=== PATIENT | male | born 1965 | race Caucasian/White ===

== ENCOUNTER 2017-04-10 21:18 | Observation (INO) | payer BC, OTHER ==
[~2017-04-10] VITALS: Ht 172.7 cm; Wt 91.0 kg
[~2017-04-10 21:18] MED LIST: LORT5TAB PO; LOVA1TAB47 PO; META800 PO; PROZ20CA11 PO; TAB-TAB PO
[2017-04-10 21:26] VITALS: BP 130/80; PULSE 64; RESP 20; O2SAT 99
[2017-04-10] MEDS ORDERED: LOVA20TA PO (21:32)
[2017-04-10] MEDS ORDERED: IBUP-232 PO (21:36)
[2017-04-10] MEDS ORDERED: FLUO-1 PO (21:36)
[2017-04-10] MEDS ORDERED: MULT1TAB46 PO (21:36)
--- NOTE | 2017-04-10 21:39 | PD ---
HPI Chief Complaint: Syncope/Near-Syncope Time Seen by Provider: 21:34 Travel History International Travel<30 days: No Contact w/Intl Traveler<30days: No Traveled to known affect area: No History of Present Illness HPI 51-year-old male presents to the emergency department by EMS transport from home where he had a syncopal episode witnessed 2. Patient states that he is felt well all day long no concerns no complaints was sitting at a table outside talking with friends and family and had a witnessed episode of syncope approximately 45 seconds induration with possible seizure activity and resolved spontaneously. Patient short time thereafter reportedly had an additional episode of syncope was placed on the ground but without any seizure-like activity and no report of bowel incontinence reports urinary incontinence; no tongue trauma. Patient again came to spontaneously. Patient did not appear confusional or postictal other than he was not aware of what had occurred. states that she felt for approximately 5-10 seconds that he was not breathing. Patient has history of dyslipidemia on Lipitor, family history of father with amyloidosis with cardiac involvement, and older brother with atrial fibrillation. No family history of premature onset CAD or sudden . Patient denies any recent long distance travel protracted bedrest or surgical procedure. No prior history of's seizure or syncopal activity. There was no associated trauma. Patient reports he feels well at this time. Patient had a normal active day without overexertion denies any chest pain palpitations shortness of breath sweats nausea vomiting referred neck jaw back shoulder arm or abdominal pain also no headache dizziness visual disturbance confusion speech disturbance upper or lower extremity numbness tingling or weakness and no ataxic gait. Patient had been well hydrated throughout the day and was not exerting himself at time of event. Patient has had previous EKG is not patient does not recall any abnormalities and has had a previous stress test that was reportedly normal. No alcohol use today. [facility] Past Medical History Narrative Medical Dyslipidemia no tobacco use Alcohol use nursing notes reviewed Anxiety: Yes Diminished Hearing: No Pneumonia: Yes (2008) Triglycerides - High: Yes Social History Alcohol Use: Yes (SOCIALLY) Tobacco Use: No Substance Use: No Allergies-Medications (Allergen,Severity, Reaction): Coded Allergies: No Known Allergies (Verified , 08/28/11) Reported Meds & Prescriptions Reported Meds & Active Scripts Active Reported Multi Vitamin Daily (Multiple Vitamin) 1 Tab Tab PO DAILY Ibuprofen 600 Mg Tab 600 Mg PO DAILY PRN Prozac (Fluoxetine HCl) 10 Mg Cap 10 Mg PO DAILY Lovastatin 20 Mg Tab 20 Mg PO DAILY Review of Systems Except as stated in HPI: all other systems reviewed are Neg General / Constitutional: No: Fever, Chills Eyes: No: Visual changes HENT: No: Headaches, Vertigo, Lightheadedness, Neck Pain Cardiovascular: Positive: Syncope, No: Chest Pain or Discomfort, Palpitations, Tachycardia, Diaphoresis, Edema Respiratory: No: Cough, Shortness of Breath Gastrointestinal: No: Nausea, Vomiting, Abdominal Pain Genitourinary: No: Flank Pain Musculoskeletal: No: Myalgias, Arthralgias Skin: No Rash Neurologic: Positive: Syncope, No: Weakness, Dizziness, Focal Abnormalities, Coordination Problem, Headache, Change in Mentation, Slurred Speech, Paresthesia , Incontinence, Seizures Psychiatric: No: Anxiety Endocrine: No: Heat Intolerance, Cold Intolerance Hematologic/Lymphatic: No: Easy Bruising Physical Exam Narrative GENERAL: Well-developed well-nourished male in no acute distress no respiratory distress GCS 15 SKIN: Warm and dry. HEAD: Atraumatic. Normocephalic. EYES: Pupils equal and round. No scleral icterus. No injection or drainage. ENT: No nasal bleeding or discharge. Mucous membranes pink and moist. NECK: Trachea midline. No JVD. CARDIOVASCULAR: Regular rate and rhythm. RESPIRATORY: No accessory muscle use. Clear to auscultation. Breath sounds equal bilaterally. GASTROINTESTINAL: Abdomen soft, non-tender, nondistended. Hepatic and splenic margins not palpable. MUSCULOSKELETAL: Extremities without clubbing, cyanosis, or edema. No obvious deformities. NEUROLOGICAL: Awake and alert. No obvious cranial nerve deficits. Motor grossly within normal limits. Five out of 5 muscle strength in the arms and legs. No limb ataxia. No pronator drift. Sensory exam grossly intact. No clonus. Normal speech. PSYCHIATRIC: Appropriate mood and affect; insight and judgment normal. Data Data Last Documented VS Vital Signs Date Time Temp Pulse Resp B/P (MAP) Pulse Ox O2 Delivery O2 Flow Rate FiO2 04/10/17 23:26 61 20 133/79 (97) 97 Room Air Orders Orders Electrocardiogram (04/10/17 22:38) Complete Blood Count With Diff (04/10/17 22:38) Comprehensive Metabolic Panel (04/10/17 22:38) Magnesium (Mg) (04/10/17 22:38) Ckmb (Isoenzyme) Profile (04/10/17 22:38) Troponin I (04/10/17 22:38) Act Partial Throm Time (Ptt) (04/10/17 22:38) Prothrombin Time / Inr (Pt) (04/10/17 22:38) Urinalysis - C+S If Indicated (04/10/17 22:38) Chest, Single Ap (04/10/17 22:38) Ct Brain W/O Iv Contrast(Rout) (04/10/17 22:38) Ecg Monitoring (04/10/17 22:38) Iv Access Insert/Monitor (04/10/17 22:38) Oximetry (04/10/17 22:38) Ondansetron Inj (Zofran Inj) (04/10/17 22:45) Sodium Chloride 0.9% Flush (Ns Flush) (04/10/17 22:45) D-Dimer (04/11/17 00:23) Admit Order (Ed Use Only) (04/11/17 ) ^ Saline Lock (04/11/17 01:49) Resp Oxygen Pj C Titrat 1-4 L (04/11/17 ) Notify Dr: Other (04/11/17 01:49) Sodium Chloride 0.9% Flush (Ns Flush) (04/11/17 09:00) Sodium Chloride 0.9% Flush (Ns Flush) (04/11/17 02:00) Labs Laboratory Tests Test 04/10/17 22:57 04/10/17 23:19 White Blood Count 6.3 TH/MM3 Red Blood Count 4.34 MIL/MM3 Hemoglobin 13.4 GM/DL Hematocrit 39.5 % Mean Corpuscular Volume 91.0 FL Mean Corpuscular Hemoglobin 30.9 PG Mean Corpuscular Hemoglobin Concent 33.9 % Red Cell Distribution Width 13.0 % Platelet Count 215 TH/MM3 Mean Platelet Volume 9.1 FL Neutrophils (%) (Auto) 47.4 % Lymphocytes (%) (Auto) 39.1 % Monocytes (%) (Auto) 10.3 % Eosinophils (%) (Auto) 2.8 % Basophils (%) (Auto) 0.4 % Neutrophils # (Auto) 3.0 TH/MM3 Lymphocytes # (Auto) 2.5 TH/MM3 Monocytes # (Auto) 0.7 TH/MM3 Eosinophils # (Auto) 0.2 TH/MM3 Basophils # (Auto) 0.0 TH/MM3 CBC Comment DIFF FINAL Differential Comment Prothrombin Time 10.8 SEC Prothromb Time International Ratio 1.0 RATIO Activated Partial Thromboplast Time 26.8 SEC D-Dimer Quantitative (PE/DVT) 0.22 MG/L FEU Blood Urea Nitrogen 20 MG/DL Creatinine 1.09 MG/DL Random Glucose 88 MG/DL Total Protein 7.3 GM/DL Albumin 3.6 GM/DL Calcium Level 8.1 MG/DL Magnesium Level 1.9 MG/DL Alkaline Phosphatase 58 U/L Aspartate Amino Transf (AST/SGOT) 22 U/L Alanine Aminotransferase (ALT/SGPT) 32 U/L Total Bilirubin 0.3 MG/DL Sodium Level 134 MEQ/L Potassium Level 3.9 MEQ/L Chloride Level 102 MEQ/L Carbon Dioxide Level 22.3 MEQ/L Anion Gap 10 MEQ/L Estimat Glomerular Filtration Rate 72 ML/MIN Total Creatine Kinase 81 U/L Troponin I LESS THAN 0.02 NG/ML Urine Color YELLOW Urine Turbidity CLEAR Urine pH 5.0 Urine Specific [place] 1.014 Urine Protein NEG mg/dL Urine Glucose (UA) NEG mg/dL Urine Ketones NEG mg/dL Urine Occult Blood NEG Urine Nitrite NEG Urine Bilirubin NEG Urine Urobilinogen LESS THAN 2.0 MG/DL Urine Leukocyte Esterase NEG Urine RBC LESS THAN 1 /hpf Urine WBC LESS THAN 1 /hpf Microscopic Urinalysis Comment CULT NOT INDICATED MDM Medical Decision Making Medical Screen Exam Complete: Yes Emergency Medical Condition: Yes Medical Record Reviewed: Yes Interpretation(s) D-dimer is 0.22, not elevated Troponin I less than 0.2, not elevated; CK: 88, not elevated Last Impressions Head CT 04/10/172237 Signed Impressions: Service Date/Time: Monday, April 10, 2017 22:46 - CONCLUSION: No acute intracranial abnormality. Jet Moran MD Chest X-Ray 04/10/172237 Signed Impressions: Service Date/Time: Monday, April 10, 2017 22:58 - CONCLUSION: No evidence of acute cardiopulmonary disease. Jet Moran MD CBC & BMP Diagram 04/10/17 22:57 Total Protein 7.3, Albumin 3.6, Calcium Level 8.1 L, Magnesium Level 1.9, Alkaline Phosphatase 58, Aspartate Amino Transf (AST/SGOT) 22, Alanine Aminotransferase (ALT/SGPT) 32, Total Bilirubin 0.3 EKG sinus rhythm rate 65 with first-degree AV block right bundle branch block and left anterior fascicular block no identified acute ST elevation Vital Signs Date Time Temp Pulse Resp B/P (MAP) Pulse Ox O2 Delivery O2 Flow Rate FiO2 04/10/17 23:26 61 20 133/79 (97) 97 Room Air 04/10/17 23:25 97 Room Air 04/10/17 22:04 58 133/83 (100) 100 Room Air 04/10/17 21:26 64 20 130/80 (97) 99 Differential Diagnosis Syncope, arrhythmia, ACS, myocardial infarction, seizure, electronic disturbance Narrative Course IV access obtained patient placed on cardiovascular specialist EKG sinus rhythm with first-degree AV block and right bundle branch block with left anterior fascicular block at bedside patient reportedly feels well voicing no concerns or complaints normal neurologic exam. CT brain noncontrast reveals no acute abnormality Cardiac enzymes are found to be in normal range D-dimer is not elevated 0.22 Case discussed with on-call medicine physician for observation admission for syncopal episode with transient urinary incontinence and movement however unlikely primary seizure event suspected vasovagal etiology will admit for ongoing cardiac monitoring and further evaluation Physician Communication Physician Communication discussed with DR Natarajan--obs admit Diagnosis Primary Impression: Syncope Qualified Codes: R55 - Syncope and collapse Admitting Information Admitting Physician Requests: Observation Kay De La Fuente MD Apr 10, 2017 21:39
[2017-04-10 22:04] VITALS: BP 133/83; PULSE 58; O2SAT 100
[2017-04-10] MEDS ORDERED: niCARdipine INJ 25 MG in SODIUM CHLOR 0.9% 250 ML INJ 250 ML IV PRN (22:15)
[2017-04-10] MEDS ORDERED: METOCLOPRAMIDE HCL 10 MG/2 ML VIAL IV PUSH ONE (22:15)
[2017-04-10] MEDS ORDERED: SODIUM CHLORIDE 0.9% FLUSH 10 ML FLUSH IVF PRN (22:45)
[2017-04-10] MEDS: ONDANSETRON HCL 4 MG/2 ML VIAL IVP ONE ×2 (22:45→23:23)
--- NOTE | 2017-04-10 22:56 | RADRPT ---
EXAM DATE/TIME: 04/10/2017 22:46 [facility] COMPARISON: No previous studies available for comparison. INDICATIONS : Dizziness. Possible syncopal episode. RADIATION DOSE: 39.83 CTDIvol (mGy) MEDICAL HISTORY : Hypercholesterolemia. SURGICAL HISTORY : None. ENCOUNTER: Initial ACUITY: 1 day PAIN SCALE: 0/10 LOCATION: Bilateral cranial TECHNIQUE: Multiple contiguous axial images were obtained of the head. Using automated exposure control and adj ustment of the mA and/or kV according to patient size, radiation dose was kept as low as reasonably a chievable to obtain optimal diagnostic quality images. DICOM format image data is available electro nically for review and comparison. FINDINGS: CEREBRUM: The ventricles are normal for age. No evidence of midline shift, mass lesion, hemorrhage or acute in farction. No extra-axial fluid collections are seen. POSTERIOR FOSSA: The cerebellum and brainstem are intact. The 4th ventricle is midline. The cerebellopontine angle i s unremarkable. EXTRACRANIAL: There is an 18 mm mucous retention cyst of the right maxillary air cell. SKULL: The calvaria is intact. No evidence of skull fracture. CONCLUSION: No acute intracranial abnormality. Jet Moran MD on April 10, 2017 at 22:54 Board Certified Radiologist. This report was verified electronically.
--- NOTE | 2017-04-10 23:02 | RADRPT ---
EXAM DATE/TIME: 04/10/2017 22:58 [facility] COMPARISON: No previous studies available for comparison. INDICATIONS : Chest discomfort. MEDICAL HISTORY : None. SURGICAL HISTORY : None. ENCOUNTER: Initial ACUITY: 1 day PAIN SCORE: 6/10 LOCATION: Bilateral chest FINDINGS: A single view of the chest demonstrates the lungs to be symmetrically aerated without evidence of mas s, infiltrate or effusion. The cardiomediastinal contours are unremarkable. Osseous structures are intact. CONCLUSION: No evidence of acute cardiopulmonary disease. Jet Moran MD on April 10, 2017 at 23:00 Board Certified Radiologist. This report was verified electronically.
[2017-04-10 23:25] VITALS: O2SAT 97
[2017-04-10 23:26] VITALS: BP 133/79; PULSE 61; RESP 20; O2SAT 97
[2017-04-10 23:28] LABS: BASOPHIL % 0.4 % (0.0-2.0); EOSINOPHIL # 0.2 TH/MM3 (0-0.4); EOSINOPHIL % 2.8 % (0.0-4.0); HEMATOCRIT 39.5 % (39.0-51.0); HEMO FLAGS DIFF FINAL; LYMPH % 39.1 % (9.0-44.0); LYMPHOCYTE # 2.5 TH/MM3 (1.0-4.8); MEAN CORPUSCULAR HEMOGLOBIN 30.9 PG (27.0-34.0); MEAN CORPUSCULAR HGB CONC 33.9 % (32.0-36.0); MONO % 10.3 % (0.0-8.0); NEUT % 47.4 % (16.0-70.0); PLATELET COUNT 215 TH/MM3 (150-450); RED BLOOD COUNT 4.34 MIL/MM3 (4.50-5.90); WHITE BLOOD COUNT 6.3 TH/MM3 (4.0-11.0)
[2017-04-10 23:39] LABS: APTT (PATIENT) 26.8 SEC (24.3-30.1); PROTHROMBIN TIME - PATIENT 10.8 SEC (9.8-11.6)
[2017-04-10 23:54] LABS: ALT (GPT) 32 U/L (12-78)
[2017-04-10 23:56] LABS: BLOOD, URINE NEG (NEG); COMMENT (UR) CULT NOT INDICATED; CULTURE IF INDICATED CULT NOT INDICATED; GLUCOSE,URINE NEG (NEG); KETONE, URINE NEG (NEG); NITRITE,URINE NEG (NEG); URINE COLOR YELLOW (YELLW/STRAW)
[2017-04-11] VITALS (9 sets, daily range): BP systolic 117–131; BP diastolic 66–81; PULSE 60–90; RESP 18–20; TEMP 98.1–98.8; O2SAT 93–99
[2017-04-11 00:19] LABS: ALKALINE PHOSPHATASE 58 U/L (45-117); ANION GAP 10 MEQ/L (5-15); AST (GOT) 22 U/L (15-37); BICARBONATE 22.3 MEQ/L (21.0-32.0); BLOOD UREA NITROGEN 20 MG/DL (7-18); CHLORIDE 102 MEQ/L (98-107); GLOMERULAR FILTRATION RATE 72 ML/MIN (>89); MAGNESIUM 1.9 MG/DL (1.5-2.5); POTASSIUM 3.9 MEQ/L (3.5-5.1); SODIUM (NA) 134 MEQ/L (136-145); TOTAL BILIRUBIN ADULT 0.3 MG/DL (0.2-1.0)
[2017-04-11 00:22] LABS: CREATINE KINASE 81 U/L (39-308)
[2017-04-11] MEDS ORDERED: SODIUM CHLORIDE 0.9% FLUSH 10 ML FLUSH IVF PRN (02:00)
[2017-04-11] MEDS: SODIUM CHLOR 0.9% 1000 ML INJ 1,000 ML IV SCH ×3 (03:32→22:50)
--- NOTE | 2017-04-11 03:42 | HHI.HP ---
HPI Service [facility] Primary Care Physician Cynthia Santiago MD Admission Diagnosis Syncope Diagnoses: Chief Complaint: syncope x 2 Travel History International Travel<30 Days: No Contact w/Intl Traveler <30 Da: No Traveled to Known Affected Are: No History of Present Illness Written by RASHAAD Crawley acting as scribe for [Rosa Isela] on 04/11/17 at 03: 36. 51 y/o male with a history of HLD and depression presented to the ED after having two episodes of syncope at home. Patient states he was just sitting in a chair at dinner on the patio. Patient does not remember the episodes but remembers when he came to and his was trying to wake him up. He states his told him the first episode he was out for 45 seconds and the second episode was shorter. He did have urinary incontinence but no tongue biting. Unclear if he was postictal at any time. He denies any chest pain, sob, dizziness, fever or chills. He states he only had a few beers tonight while cooking BBQ. No history of seizures. Review of Systems Except as stated in HPI: all other systems reviewed are Neg Past Family Social History Past Medical History HLD Depression Past Surgical History Carpel tunnel surgery Vasectomy Reported Medications Reported Meds & Active Scripts Active Reported Multi Vitamin Daily (Multiple Vitamin) 1 Tab Tab PO DAILY Ibuprofen 600 Mg Tab 600 Mg PO DAILY PRN Prozac (Fluoxetine HCl) 10 Mg Cap 10 Mg PO DAILY Lovastatin 20 Mg Tab 20 Mg PO DAILY Allergies: Coded Allergies: No Known Allergies (Verified , 08/28/11) Active Ordered Medications Current Medications Medications (Trade) Dose Ordered Sig/Bharat Route Start Time Stop Time Status Last Admin (NS Flush) 2 ml BID IV FLUSH 04/11/17 09:00 (NS Flush) 2 ml UNSCH PRN IVF 04/11/17 02:00 Sodium Chloride 1,000 ml @ 100 mls/hr Q10H IV 04/11/17 01:51 04/11/17 03:32 (Heparin Inj) 5,000 units Q8HR SQ 04/11/17 06:00 Family History Dad: Luna Brother: Marla Social History Tobacco use: Denies Alcohol use: A few beers every couple of days Illicit drug use: Denies Physical Exam Vital Signs Vital Signs Date Time Temp Pulse Resp B/P (MAP) Pulse Ox O2 Delivery O2 Flow Rate FiO2 04/10/17 23:26 61 20 133/79 (97) 97 Room Air 04/10/17 23:25 97 Room Air 04/10/17 22:04 58 133/83 (100) 100 Room Air 04/10/17 21:26 64 20 130/80 (97) 99 Physical Exam GENERAL: This is a well-nourished, well-developed patient, in no apparent distress. SKIN: No rashes, ecchymoses or lesions. Cool and dry. HEAD: Atraumatic. Normocephalic. EYES: Pupils equal round and reactive. Extraocular motions intact. ENT: Nose without bleeding, purulent drainage or septal hematoma. Airway patent. NECK: Trachea midline. No JVD or lymphadenopathy. CARDIOVASCULAR: Regular rate and rhythm without murmurs, gallops, or rubs. RESPIRATORY: Clear to auscultation. Breath sounds equal bilaterally. No wheezes , rales, or rhonchi. GASTROINTESTINAL: Abdomen soft, non-tender, nondistended. No guarding. MUSCULOSKELETAL: Extremities without clubbing, cyanosis, or edema. No calf tenderness. NEUROLOGICAL: Awake and alert. Cranial nerves II through XII intact. Motor and sensory grossly within normal limits. Five out of 5 muscle strength in all muscle groups. Normal speech. Laboratory Laboratory Tests Test 04/10/17 22:57 04/10/17 23:19 White Blood Count 6.3 Red Blood Count 4.34 Hemoglobin 13.4 Hematocrit 39.5 Mean Corpuscular Volume 91.0 Mean Corpuscular Hemoglobin 30.9 Mean Corpuscular Hemoglobin Concent 33.9 Red Cell Distribution Width 13.0 Platelet Count 215 Mean Platelet Volume 9.1 Neutrophils (%) (Auto) 47.4 Lymphocytes (%) (Auto) 39.1 Monocytes (%) (Auto) 10.3 Eosinophils (%) (Auto) 2.8 Basophils (%) (Auto) 0.4 Neutrophils # (Auto) 3.0 Lymphocytes # (Auto) 2.5 Monocytes # (Auto) 0.7 Eosinophils # (Auto) 0.2 Basophils # (Auto) 0.0 CBC Comment DIFF FINAL Differential Comment Prothrombin Time 10.8 Prothromb Time International Ratio 1.0 Activated Partial Thromboplast Time 26.8 D-Dimer Quantitative (PE/DVT) 0.22 Blood Urea Nitrogen 20 Creatinine 1.09 Random Glucose 88 Total Protein 7.3 Albumin 3.6 Calcium Level 8.1 Magnesium Level 1.9 Alkaline Phosphatase 58 Aspartate Amino Transf (AST/SGOT) 22 Alanine Aminotransferase (ALT/SGPT) 32 Total Bilirubin 0.3 Sodium Level 134 Potassium Level 3.9 Chloride Level 102 Carbon Dioxide Level 22.3 Anion Gap 10 Estimat Glomerular Filtration Rate 72 Total Creatine Kinase 81 Troponin I LESS THAN 0.02 Ethyl Alcohol Level 146 Urine Color YELLOW Urine Turbidity CLEAR Urine pH 5.0 Urine Specific [place] 1.014 Urine Protein NEG Urine Glucose (UA) NEG Urine Ketones NEG Urine Occult Blood NEG Urine Nitrite NEG Urine Bilirubin NEG Urine Urobilinogen LESS THAN 2.0 Urine Leukocyte Esterase NEG Urine RBC LESS THAN 1 Urine WBC LESS THAN 1 Microscopic Urinalysis Comment CULT NOT INDICATED Urine Opiates Screen NEG Urine Barbiturates Screen NEG Urine Amphetamines Screen NEG Urine Benzodiazepines Screen NEG Urine Cocaine Screen NEG Urine Cannabinoids Screen NEG Result Diagram: 04/10/[id number]/[id number] Imaging Last Impressions Head CT 04/10/172237 Signed Impressions: Service Date/Time: Monday, April 10, 2017 22:46 - CONCLUSION: No acute intracranial abnormality. Jet Moran MD Chest X-Ray 04/10/172237 Signed Impressions: Service Date/Time: Monday, April 10, 2017 22:58 - CONCLUSION: No evidence of acute cardiopulmonary disease. Jet Moran MD Caprini VTE Risk Assessment Caprini VTE Risk Assessment: No/Low Risk (score <= 1) Caprini Risk Assessment Model Point Value = 1 Point Value = 2 Point Value = 3 Point Value = 5 Age 41-60 Minor surgery BMI > 25 kg/m2 Swollen legs Varicose veins or History of unexplained or recurrent spontaneous Oral contraceptives or hormone replacement Sepsis (< 1 month) Serious lung disease, including pneumonia (< 1 month) Abnormal pulmonary function Acute myocardial infarction Congestive heart failure (< 1 month) History of inflammatory bowel disease Medical patient at bed rest Age 61-74 Arthroscopic surgery Major open surgery (> 45 min) Laparoscopic surgery (> 45 min) Malignancy Confined to bed (> 72 hours) Immobilizing plaster cast Central venous access Age >= 75 History of VTE Family history of VTE Factor V Leiden Prothrombin [id number] Lupus anticoagulant Anticardiolipin antibodies Elevated serum homocysteine Heparin-induced thrombocytopenia Other congenital or acquired thrombophilia Stroke (< 1 month) Elective arthroplasty Hip, pelvis, or leg fracture Acute spinal cord injury (< 1 month) Prophylaxis Regimen Total Risk Factor Score Risk Level Prophylaxis Regimen 0-1 Low Early ambulation 2 Moderate Order ONE of the following: *Sequential Compression Device (SCD) *Heparin 5000 units SQ BID 3-4 Higher Order ONE of the following medications: *Heparin 5000 units SQ TID *Enoxaparin/Lovenox 40 mg SQ daily (WT < 150 kg, CrCl > 30 mL/min) *Enoxaparin/Lovenox 30 mg SQ daily (WT < 150 kg, CrCl > 10-29 mL/min) *Enoxaparin/Lovenox 30 mg SQ BID (WT < 150 kg, CrCl > 30 mL/min) AND/OR *Sequential Compression Device (SCD) 5 or more Highest Order ONE of the following medications: *Heparin 5000 units SQ TID (Preferred with Epidurals) *Enoxaparin/Lovenox 40 mg SQ daily (WT < 150 kg, CrCl > 30 mL/min) *Enoxaparin/Lovenox 30 mg SQ daily (WT < 150 kg, CrCl > 10-29 mL/min) *Enoxaparin/Lovenox 30 mg SQ BID (WT < 150 kg, CrCl > 30 mL/min) AND *Sequential Compression Device (SCD) Assessment and Plan Problem List: (1) Syncope ICD Code: R55 - Syncope and collapse Status: Acute (2) HLD (hyperlipidemia) ICD Code: E78.5 - Hyperlipidemia, unspecified Status: Chronic Assessment and Plan 51 y/o male with a history of HLD and depression presented to the ED after having two episodes of syncope at home. Syncope, neurogenic vs cardiogenic Head CT reviewed and shows no acute abnormalities -EEG, 2 D echo and US carotids ordered -Monitor telemetry -Neuro checks - Accu checks, A1C ordered r/o DM HLD, chronic: resume home medications lovastatin Depression: Resume home medications Prozac DVT prophylaxis: Heparin Discussed Condition With Patient This note was transcribed by stephanie Marquez Barble]. I, Dr. Aleja Natarajan personally performed the history, physical exam, and medical decision making; and confirmed the accuracy of the information in the transcribed note. Authenticated by Dr. Aleja Natarajan on 04/11/17 at 04:25. Problem Qualifiers (1) Syncope: Qualified Codes: R55 - Syncope and collapse Isis Aiken Apr 11, 2017 03:42 Aleja Natarajan MD Apr 11, 2017 06:26
[2017-04-11] MEDS: HEPARIN SODIUM - SQ 10,000 UNITS/ML VIAL SQ SCH ×3 (07:27→21:29)
[2017-04-11] MEDS: PRAVASTATIN SOD 20 MG TAB PO SCH (08:56)
[2017-04-11] MEDS: SODIUM CHLORIDE 0.9% FLUSH 10 ML FLUSH IV FLUSH SCH ×2 (08:56→21:00)
[2017-04-11] MEDS: FLUoxetine HCL 10 MG CAP PO SCH (08:56)
--- NOTE | 2017-04-11 09:51 | HHI.PR ---
Subjective Remarks Follow up for syncope. The patient reports feeling well today. Denies any lightheadedness, dizziness, chest pain, shortness of breath, or abdominal complaints. He has been ambulating to the restroom without difficulty. This has never happened to him before. He does admit to drinking a few beers yesterday, then almost completed a large meal when the syncopal event occurred. The patient denies any recent chest pains/angina/dyspnea. He stays pretty active and has no difficulty mowing his entire lawn with a push lawnmower. Objective Vitals Vital Signs Date Time Temp Pulse Resp B/P (MAP) Pulse Ox O2 Delivery O2 Flow Rate FiO2 04/11/17 08:46 90 04/11/17 08:06 93 21 04/11/17 07:55 98.8 61 18 126/76 (93) 99 04/10/17 23:26 61 20 133/79 (97) 97 Room Air 04/10/17 23:25 97 Room Air 04/10/17 22:04 58 133/83 (100) 100 Room Air 04/10/17 21:26 64 20 130/80 (97) 99 Result Diagram: 04/10/17225604/10/172256 Imaging Last Impressions Head CT 04/10/172237 Signed Impressions: Service Date/Time: Monday, April 10, 2017 22:46 - CONCLUSION: No acute intracranial abnormality. Jet Moran MD Chest X-Ray 04/10/172237 Signed Impressions: Service Date/Time: Monday, April 10, 2017 22:58 - CONCLUSION: No evidence of acute cardiopulmonary disease. Jet Moran MD Objective Remarks GENERAL: Well-nourished, well-developed pleasant middle aged male patient in [facility]. SKIN: Warm and dry. No rash. HEENT: Normocephalic. Atraumatic.Pupils equal and round. Mucous membranes pink and moist. NECK: Supple. Trachea midline. CARDIOVASCULAR: Regular rate and rhythm. S1, S2 noted. No murmur appreciated. RESPIRATORY: No accessory muscle use. Clear to auscultation. Breath sounds equal bilaterally. GASTROINTESTINAL: Abdomen soft, non-tender, nondistended. Normoactive bowel sounds x4. MUSCULOSKELETAL: No obvious deformities. Extremities without clubbing, cyanosis , or edema. NEUROLOGICAL: Awake and alert. No obvious cranial nerve deficits. Motor grossly within normal limits. Normal speech. PSYCHIATRIC: Appropriate mood and affect; insight and judgment normal. Medications and IVs Current Medications Medications (Trade) Dose Ordered Sig/Bharat Route Start Time Stop Time Status Last Admin (NS Flush) 2 ml BID IV FLUSH 04/11/17 09:00 (NS Flush) 2 ml UNSCH PRN IVF 04/11/17 02:00 Sodium Chloride 1,000 ml @ 100 mls/hr Q10H IV 04/11/17 01:51 04/11/17 03:32 (Heparin Inj) 5,000 units Q8HR SQ 04/11/17 06:00 04/11/17 07:27 (PROzac) 10 mg DAILY PO 04/11/17 09:00 04/11/17 08:56 (Pravachol) 20 mg DAILY PO 04/11/17 09:00 04/11/17 08:56 (Pneumovax-23 Inj) 25 mcg ONCE ONCE IM 04/12/17 10:00 04/12/17 10:01 (Flu (Quadrivalent) Vaccine Inj) 0.5 ml ONCE ONCE IM 04/12/17 10:00 04/12/17 10:01 A/P Problem List: (1) Syncope ICD Code: R55 - Syncope and collapse Status: Acute (2) HLD (hyperlipidemia) ICD Code: E78.5 - Hyperlipidemia, unspecified Status: Chronic Assessment and Plan 51 y/o male with a history of HLD and depression presented to the ED after having two episodes of syncope at home. Syncope: unclear etiology, suspect neurocardiogenic; vasovagal in combination with alcohol use. Head CT reviewed and shows no acute abnormalities. -Check EEG as there was reported incontinence -Check 2 D echocardiogram -U/S carotids ordered -Monitor on telemetry, no acute events -Monitor Neuro checks -Accu checks, HgbA1C ordered r/o DM Abnormal EKG: EKG reviewed, shows sinus rhythm with 1st degree AV block; RBBB; LAFB with ST-T changes when compared to previous EKG in 2012 -Rule out ACS with serial cardiac enzymes and EKGs -Start on aspirin 81mg daily -Check nuclear stress test in am HLD: chronic, resume home medication lovastatin Depression: Resume home medication Prozac DVT prophylaxis: Heparin Discharge Planning Possible discharge tomorrow if nuclear stress test and echocardiogram unremarkable. Problem Qualifiers (1) Syncope: Qualified Codes: R55 - Syncope and collapse Kat Lambert PA-C Apr 11, 2017 09:51
[2017-04-11 11:05] LABS: HEMOGLOBIN A1b 0.7 %; HEMOGLOBIN Ao 86.4 %; HEMOGLOBIN F 0.9 %; HEMOGLOBIN LA1C 1.9 %; HEMOGLOBIN P3 3.5 %
[2017-04-11] MEDS: ASPIRIN EC 81 MG TABEC PO SCH (11:23)
[2017-04-11 12:14] LABS: ANION GAP 8 MEQ/L (5-15); BICARBONATE 24.8 MEQ/L (21.0-32.0); BLOOD UREA NITROGEN 17 MG/DL (7-18); CHLORIDE 107 MEQ/L (98-107); GLOMERULAR FILTRATION RATE 72 ML/MIN (>89); SODIUM (NA) 140 MEQ/L (136-145)
[2017-04-11 12:20] LABS: CREATINE KINASE 59 U/L (39-308)
--- NOTE | 2017-04-11 15:32 | RADRPT ---
EXAM DATE/TIME: 04/11/2017 12:38 [facility] COMPARISON: No previous studies available for comparison. INDICATIONS : Syncope. MEDICAL HISTORY : Hypercholesterolemia. Hyperlipidemia. Pneumonia. Anxiety. SURGICAL HISTORY : Right hand surgery. Vasectomy. ENCOUNTER: Initial ACUITY: 1 day PAIN SCORE: 0/10 LOCATION: Bilateral neck PEAK SYSTOLIC VELOCITIES (cm/sec): ICA/CCA RATIO: Right: 0.8 Left: 0.9 ICA: Right: 80.6 Left: 70.9 CCA: Right: 97.4 Left: 96.4 ECA: Right: 112.1 Left: 98.4 VERTEBRAL: Right: 49.0 antegrade Left: 66.1 antegrade Elevated flow velocities and ICA/CCA ratios have been found to correlate with increased degrees of vessel stenosis, calculated as percentage of diameter relative to a normal segment of distal ICA/CCA FINDINGS: RIGHT CAROTID: No significant stenosis is visualized. The waveforms are within normal limits. LEFT CAROTID: No significant stenosis is visualized. The waveforms are within normal limits. VERTEBRAL ARTERIES: Antegrade flow is seen in both vertebral arteries. MISCELLANEOUS: None. CONCLUSION: Negative for hemodynamically significant stenosis.. Westley Zapata MD FACR on April 11, 2017 at 15:29 Board Certified Radiologist. This report was verified electronically.
--- NOTE | 2017-04-11 20:06 | EKG ---
Date Performed: 04/10/2017 Time Performed: 21:30:24 PTAGE: 51 years EKG: Sinus rhythm WITH FIRST DEGREE AV BLOCK RIGHT BUNDLE BRANCH BLOCK LEFT ANTERIOR FASCICULAR BLOCK LEFT VENTRICULAR HYPERTROPHY AND ST-T CHANGE ABNORMAL ECG PREVIOUS TRACING : 08/28/2011 20.35 DOCTOR: Mxaine Mao Interpretating Date/Time 04/11/2017 20:04:29
[2017-04-12] VITALS (8 sets, daily range): BP systolic 109–139; BP diastolic 66–80; PULSE 53–76; RESP 16–18; TEMP 97.2–98.6; O2SAT 96–99
[2017-04-12] MEDS: HEPARIN SODIUM - SQ 10,000 UNITS/ML VIAL SQ SCH ×2 (06:36→13:20)
[2017-04-12 06:42] LABS: AUTOMATED NEUTROPHIL # 2.1 TH/MM3 (1.8-7.7); BASOPHIL % 0.5 % (0.0-2.0); EOSINOPHIL # 0.2 TH/MM3 (0-0.4); EOSINOPHIL % 3.9 % (0.0-4.0); HEMATOCRIT 38.9 % (39.0-51.0); HEMO FLAGS DIFF FINAL; LYMPH % 37.8 % (9.0-44.0); LYMPHOCYTE # 1.7 TH/MM3 (1.0-4.8); MEAN CELL VOLUME 91.1 FL (80.0-100.0); MEAN CORPUSCULAR HEMOGLOBIN 31.6 PG (27.0-34.0); MEAN CORPUSCULAR HGB CONC 34.7 % (32.0-36.0); NEUT % 47.8 % (16.0-70.0); PLATELET COUNT 174 TH/MM3 (150-450); RED BLOOD COUNT 4.27 MIL/MM3 (4.50-5.90); WHITE BLOOD COUNT 4.5 TH/MM3 (4.0-11.0)
[2017-04-12 07:14] LABS: BICARBONATE 26.6 MEQ/L (21.0-32.0); POTASSIUM 3.8 MEQ/L (3.5-5.1)
[2017-04-12] MEDS: ASPIRIN EC 81 MG TABEC PO SCH (08:12)
[2017-04-12] MEDS: FLUoxetine HCL 10 MG CAP PO SCH (08:13)
[2017-04-12] MEDS: SODIUM CHLORIDE 0.9% FLUSH 10 ML FLUSH IV FLUSH SCH (08:14)
[2017-04-12] MEDS: PRAVASTATIN SOD 20 MG TAB PO SCH (08:14)
[2017-04-12] MEDS ORDERED: REGADENOSON INJ 0.4 MG/5 ML SYR ONE (09:16)
[2017-04-12] MEDS ORDERED: INFLUENZA VIRUS VACCINE (QUADRIVALENT) 0.5 ML SYR IM ONE (10:00)
[2017-04-12] MEDS ORDERED: PNEUMOCOCCAL POLYVALENT INJ 25 MCG/0.5 ML SYR IM ONE (10:00)
--- NOTE | 2017-04-12 10:18 | RADRPT ---
EXAM DATE/TIME: 04/12/2017 08:32 [facility] COMPARISON: No previous studies available for comparison. INDICATIONS : Two episodes of synope for two days. Abnormal EKG. DOSE: 27.3 mCi Tc99m Myoview at stress. 8.7 mCi Tc99m Myoview at rest. 0.4 mg Lexiscan STRESS SYMPTOMS: None noted. EJECTION FRACTION: 57% MEDICAL HISTORY : Hypercholesterolemia. SURGICAL HISTORY : Carpal tunnel syndrome. ENCOUNTER: Initial ACUITY: 2 days PAIN SCALE: 1/10 LOCATION: chest TECHNIQUE: The patient underwent pharmacologic stress with infusion of prescribed dose. Continuous ECG tracing was monitored during stress. Gated SPECT imaging was performed after stress and conventional SPECT i maging was performed at rest. The examination was performed on a SPECT/CT scanner, both attenuation and non-corrected datasets were reviewed. FINDINGS: DISTRIBUTION: The maximum perfused segment at stress is in the septal wall. PERFUSION STUDY: There is a small area of mildly diminished relative diffusion involving the anterior wall which does not extend to the cardiac apex. No evidence of redistribution. GATED STUDY: There is intact wall motion and thickening without hypokinetic or dyskinetic segments. CONCLUSION: Small size mild severity anterior wall perfusion abnormality without redistribution. RISK CATEGORY: Low (<1% Annual Mortality Rate) Jet Kirby MD on April 12, 2017 at 10:12 Board Certified Radiologist. This report was verified electronically.
--- NOTE | 2017-04-12 11:47 | HHI.PR ---
Subjective Remarks Follow up for syncope, abnormal EKG. The patient is seen s/p nuclear stress test , results discussed. He continues to deny any further complaints including no chest pain, palpitations, shortness of breath, nausea, diaphoresis, or abdominal pain. He has been ambulating without difficulty. Objective Vitals Vital Signs Date Time Temp Pulse Resp B/P (MAP) Pulse Ox O2 Delivery O2 Flow Rate FiO2 04/12/17 08:20 97.2 57 16 123/77 (92) 97 122/73 (89) 132/80 (97) 04/12/17 07:31 53 04/12/17 04:37 98.4 53 18 128/71 (90) 99 04/12/17 04:36 98.5 76 17 109/66 (80) 96 04/12/17 00:05 98.0 59 18 131/73 (92) 97 04/11/17 23:03 61 04/11/17 21:19 95 21 04/11/17 20:17 98.1 67 18 120/71 (87) 96 122/76 (91) 131/81 (98) 04/11/17 16:13 60 04/11/17 15:32 98.2 61 18 117/70 (86) 98 Result Diagram: 04/12/17 0600 04/12/17 0600 Imaging Last Impressions Myocardial Perfusion Scan Nuc Med 04/12/17 06 Signed Impressions: Service Date/Time: Wednesday, April 12, 2017 08:32 - CONCLUSION: Small size mild severity anterior wall perfusion abnormality without redistribution. RISK CATEGORY: Low (<1%% Annual Mortality Rate) Jet Kirby MD Carotid Artery Ultrasound 04/11/17 0000 Signed Impressions: Service Date/Time: Tuesday, April 11, 2017 12:38 - CONCLUSION: Negative for hemodynamically significant stenosis.. Westley Zapata MD FACR Head CT 04/10/172237 Signed Impressions: Service Date/Time: Monday, April 10, 2017 22:46 - CONCLUSION: No acute intracranial abnormality. Jet Moran MD Chest X-Ray 04/10/172237 Signed Impressions: Service Date/Time: Monday, April 10, 2017 22:58 - CONCLUSION: No evidence of acute cardiopulmonary disease. Jet Moran MD Objective Remarks GENERAL: Well-nourished, well-developed pleasant middle aged male patient in [facility]. SKIN: Warm and dry. No rash. HEENT: Normocephalic. Atraumatic.Pupils equal and round. Mucous membranes pink and moist. NECK: Supple. Trachea midline. CARDIOVASCULAR: Regular rate and rhythm. S1, S2 noted. No murmur appreciated. RESPIRATORY: No accessory muscle use. Clear to auscultation. Breath sounds equal bilaterally. GASTROINTESTINAL: Abdomen soft, non-tender, nondistended. Normoactive bowel sounds x4. MUSCULOSKELETAL: No obvious deformities. Extremities without clubbing, cyanosis , or edema. NEUROLOGICAL: Awake and alert. No obvious cranial nerve deficits. Motor grossly within normal limits. Normal speech. PSYCHIATRIC: Appropriate mood and affect; insight and judgment normal. Medications and IVs Current Medications Medications (Trade) Dose Ordered Sig/Bharat Route Start Time Stop Time Status Last Admin (NS Flush) 2 ml BID IV FLUSH 04/11/17 09:00 (NS Flush) 2 ml UNSCH PRN IVF 04/11/17 02:00 Sodium Chloride 1,000 ml @ 100 mls/hr Q10H IV 04/11/17 01:51 04/11/17 22:50 (Heparin Inj) 5,000 units Q8HR SQ 04/11/17 06:00 04/12/17 06:36 (PROzac) 10 mg DAILY PO 04/11/17 09:00 04/12/17 08:13 (Pravachol) 20 mg DAILY PO 04/11/17 09:00 04/12/17 08:14 (Ecotrin Ec) 81 mg DAILY PO 04/11/17 11:00 04/12/17 08:12 A/P Problem List: (1) Syncope ICD Code: R55 - Syncope and collapse Status: Acute (2) HLD (hyperlipidemia) ICD Code: E78.5 - Hyperlipidemia, unspecified Status: Chronic Assessment and Plan 51 y/o male with a history of HLD and depression presented to the ED after having two episodes of syncope at home. Syncope: unclear etiology, suspect cardiogenic vs vasovagal in combination with alcohol use. Significantly abnormal EKG, see below. Head CT reviewed and shows no acute abnormalities. -Check EEG as there was reported incontinence, results pending -Check 2 D echocardiogram, results pending -U/S carotids unremarkable -Monitor on telemetry, no acute events; Holter in place -Monitor Neuro checks -HgbA1C 5.3 Abnormal EKG with Trifascicular Block: EKG reviewed, shows sinus rhythm with 1st degree AV block; RBBB; LAFB with ST-T changes when compared to previous EKG in 2012 -Ruled out ACS with negative serial cardiac enzymes however EKG abnormal as above -Started on aspirin 81mg daily -Nuclear stress test showed small size mild severity anterior wall perfusion abnormality without redistribution -Consult sandblast operator for further evaluation, discussed with Dr. Light, plan for heart cath today -Patient needs eval by Dr. Mao, consider pacer vs EP study HLD: chronic, resume home medication lovastatin Depression: Resume home medication Prozac DVT prophylaxis: Heparin Discharge Planning Discharge pending further evaluation by Dr. Mao. Problem Qualifiers (1) Syncope: Qualified Codes: R55 - Syncope and collapse Kat Lambert PA-C Apr 12, 2017 11:47
--- NOTE | 2017-04-12 11:50 | ECHRPT ---
Indication: syncope CONCLUSIONS The left ventricular systolic function is normal with an estimated ejection fraction in the range of 60-65%. Mild to moderate concentric left ventricular hypertrophy. Trace mitral valve regurgitation. There is trace tricuspid valve regurgitation. Trivial pulmonary valve regurgitation. BP: 128 / 71 HR: 53 Rhythm: Sinus MEASUREMENTS (Male / Female) Normal Values Technical Quality:Fair 2D ECHO LV Diastolic Diameter PLAX 4.1 cm 4.2 - 5.9 / 3.9 - 5.3 cm LV Systolic Diameter PLAX 2.6 cm IVS Diastolic Thickness 1.4 cm 0.6 - 1.0 / 0.6 - 0.9 cm LVPW Diastolic Thickness 1.4 cm 0.6 - 1.0 / 0.6 - 0.9 cm LV Relative Wall Thickness 0.7 RV Internal Dim ED PLAX 2.8 cm LVOT Diameter 1.9 cm LA Systolic Diameter LX 3.3 cm 3.0 - 4.0 / 2.7 - 3.8 cm LV Ejection Fraction MOD 4C 68.5 % LV Cardiac Index MOD 4C 1907.1 cm/minm LV Ejection Fraction 4C AL 69.5 % LV Cardiac Index 4C AL 2003.7 cm/minm M-MODE Aortic Root Diameter MM 2.8 cm AV Cusp Separation MM 2.1 cm DOPPLER AV Peak Velocity 130.0 cm/s AV Peak Gradient 6.8 mmHg LVOT Peak Velocity 98.2 cm/s LVOT Peak Gradient 3.9 mmHg AV Area Cont Eq pk 2.1 cm MV Area PHT 3.9 cm Mitral E Point Velocity 80.0 cm/s Mitral A Point Velocity 33.6 cm/s Mitral E to A Ratio 2.4 LV E' Lateral Velocity 9.7 cm/s Mitral E to LV E' Lateral Ratio 8.3 LV E' Septal Velocity 5.4 cm/s Mitral E to LV E' Septal Ratio 14.9 TR Peak Velocity 240.0 cm/s TR Peak Gradient 23.0 mmHg PV Peak Velocity 109.0 cm/s PV Peak Gradient 4.8 mmHg FINDINGS LEFT VENTRICLE The left ventricular systolic function is normal with an estimated ejection fraction in the range of 60-65%. No regional wall motion abnormalities are present. Normal left ventricular size. Mild to moderate concentric left ventricular hypertrophy. RIGHT VENTRICLE The right ventriclar size is upper limits of normal. LEFT ATRIUM The left atrial size is normal. RIGHT ATRIUM The right atrial size is normal. ATRIAL SEPTUM Normal atrial septal thickness without atrial level shunting by limited color doppler interrogation. AORTA The aortic root and proximal ascending aorta are normal in size on limited imaging. MITRAL VALVE Structurally normal mitral valve. No mitral valve stenosis. Trace mitral valve regurgitation. AORTIC VALVE Trileaflet aortic valve. No aortic valve stenosis or regurgitation. TRICUSPID VALVE Structurally normal tricuspid valve. There is trace tricuspid valve regurgitation. The estimated pulmonary arterial pressure is 33 mmHg. PULMONARY VALVE The pulmonary valve is not well visualized. Trivial pulmonary valve regurgitation. VESSELS The inferior vena cava is normal in size. PERICARDIUM No pericardial effusion. Clive Light DO (Electronically Signed) Final Date:12 April 2017 11:49
[2017-04-12] MEDS: SODIUM CHLOR 0.9% 1000 ML INJ 1,000 ML IV SCH (12:02)
[2017-04-12 13:16] LABS: HDL CHOLESTEROL 56.5 MG/DL (40.0-60.0)
--- NOTE | 2017-04-12 13:43 | EKG ---
Date Performed: 04/11/2017 Time Performed: 16:31:46 PTAGE: 51 years EKG: Sinus rhythm WITH FIRST DEGREE AV BLOCK RIGHT BUNDLE BRANCH BLOCK LEFT ANTERIOR FASCICULAR BLOCK POSSIBLE ANTERIO R MYOCARDIAL INFARCTION ABNORMAL ECG Compared to prior tracing no significant change PREVIOUS TRACING : 04/10/2017 21.30 DOCTOR: Rome Garcia Interpretating Date/Time 04/12/2017 13:42:49
[2017-04-12] MEDS ORDERED: IOHEXOL 350 MG/ML 50 ML BTL (for Cath Lab) OTHER ONE (14:31)
[2017-04-12] MEDS ORDERED: VERAPAMIL HCL 5 MG/2 ML VIAL ONE (14:39)
[2017-04-12] MEDS ORDERED: MIDAZOLAM HCL 2 MG/2 ML VIAL ONE (14:39)
[2017-04-12] MEDS ORDERED: HEPARIN SODIUM - IV 10,000 UNITS/10 ML VIAL ONE (14:40)
[2017-04-12] MEDS ORDERED: HEPARIN-NS/PF INJ 1,000 ML ONE (14:40)
--- NOTE | 2017-04-12 15:25 | CATHPROC ---
[employer] HIS Report Study Information Study Number Admission Scheduled Start Study Start [id number] Apr 11 2017 1:51AM 04/12/2017 Apr 12 2017 2:32PM [place] Service Cardiac Catheterization Admit Source Facility Department Emergency department [facility] Shrinking Machine Operator Physician and Clinical Staff Initial Clive Jiang Demolitionist Johnathon Man RN Recorder Maylin Cabrales,RT(R) (BS) Scrub Jossy Zamora,RT(R) Procedures Performed Procedure Location (Site) Vessel Name Coronary Angiograms LCA Left Coronary Coronary Angiograms RCA Right Coronary L Heart Cath Wire insertion Radial (right) Radial Art. Equipment Time Assistant Inventory Manager Description Size Mfg Part Number Used/Scraped TRANSDUCER, TRUWAVE [id number] 14:54 SILVERMAN ADAMS * Used W/STOCKCOCK *[id number] *[id number] [id number] *[id number] 14:54 [employer] PACK, CCL CUSTOM * Used *[id number] 14:54 [employer] SUPPORT, ARTERIAL ADULT [id number] *[id number] Used BAND, RADIAL COMPRESSION TR [id number] 15:11 [employer] MEDICAL 24CM Used SHORT 24 *[id number] 14:54 [employer] MEDICAL WIRE, EXCHANGE 260CM 3MMJ 260CM Used *[id number] 14:54 [employer] MANIFOLD, 4 PORT * Used *[id number] 14:54 [employer] OMNIPAQUE, 350 MG, 150ML 150ML [id number] Used [id number] 14:54 [employer] MEDICAL BLANKET,WARM AIR CCL * Used *[id number] SHEATH, FR6 TRANSRADIAL RM*[id number] 14:54 [employer] FR 6 Used SLENDER 10CM *[id number] History: Allergies Allergy Reaction No Known Allergies History: Risk Factors Family History of Hypertension Dyslipidemia Previous KS Previous Heart Failure Premature CAD No Yes No No No Prior Valve Prior PCI Prior CABG Surgery No No No Cerebrovascular Peripheral Artery Chronic Lung On Dialysis Diabetes Disease Disease Disease No No No No No History: Symptoms/Diagnosis Selection Items Syncope History: Stress Tests Stress or Imaging Studies Performed Yes Standard Exercise Stress Test No Stress Echo No Stress Test SPECT Yes Stress Test CMR No Cardiac CTA Coronary Calcium Score No No History: Other Current Smoker No Labs Hgb (g/dl) Hct (%) WBC (l/cumm) Platelets (thousands) 11.60-17.00 35.00-51.00 4.00-11.00 150.00-450.00 13.5 38.9 4.5 174 Glucose (mg/dl) BUN (mg/dl) Creatinine (mg/dl) BUN:Creatinine (1:x) 74.00-106.00 7.00-18.00 0.50-1.30 10.00-20.00 95 17 0.9 18.9 Na (meq/l) K (meq/l) 136.00-145.00 3.50-5.10 141 3.8 INR (PTT:PT) 0.90-1.10 1 CPK-MB (ng/ML) 0.50-3.60 Not Drawn Medication Medication Total Dose (Bolus/Oral) Medication Total Dosage/Unit 1% XYLOCAINE 1 mL FENTANYL 25 mcg RADIAL COCKTAIL 1 units VERSED 0.5 mg Medications (Bolus/Oral) Medication Time Given Dosage/Unit Administered By Reason VERSED 04/12/2017 2:51:24 PM 0.5 mg Johnathon Man 0.5 mg VERSED given in lab by Johnathon Man RN in Right Antecubital via Peripheral IV. 1% XYLOCAINE 04/12/2017 2:53:22 PM 1 mL Clive Light 1 mL 1% XYLOCAINE given in lab by Clive Light in Right Radial via Subcutaneous. FENTANYL 04/12/2017 2:53:34 PM 25 mcg Johnathon Man 25 mcg FENTANYL given in lab by Johnathon Man RN in Left Antecubital via Peripheral IV. Ntg 200mcg Verapamil 2.5mg Heparin RADIAL COCKTAIL 04/12/2017 2:56:14 PM 1 units Clive Light 3000U 5 mL (Bolus) RADIAL COCKTAIL given in lab by Clive Light via Radial. Using [Solution Name]. [place] son: Ntg 200mcg Verapamil 2.5mg Heparin 3600U. Medication (Drip) Medication Time Given Dosage/Unit Concentration/Unit Diluent (ml) Solutio n IV Solutions 04/12/2017 2:32:34 PM 0 mL (IV) 500 NaCl .9 IV Solutions given in lab by Johnathon Man RN in Right Antecubital via Peripheral IV. Pump/Drip Flow = 100 ml/hr using NaCl .9. Initial Case Assessment Cardiovascular HR Rhythm NIBP Chest Pain 59 irreg 139/78 0 Edema Present Skin color Skin None Normal Warm Dry Circulatory - Right Pulses Dorsalis Pedis Femoral Radial 2 2 2 Scale (0,1,2,3,4,d) Scale (0,1,2,3,4,d) Circulatory - Lower Extremities Color Lower Right Color Lower Left Normal Normal Chronological Log Time Study Chronological Log 14:31:51 Patient arrived via Bed. 14:31:52 Patient Name, D.O.B, / Armband Verified By R.N. 14:31:52 Consent signed by the physician and the patient and verified by the Shrinking Machine Operator staff. 14:31:58 Pre-op and post- op instructions given; patient acknowledges understanding of instructions. 14:32:00 Verbal Stimulation=2 Physical Stimulation=2 Airway=2 Respiration=2 TOTAL=8. (0=absent, 1=li mited, 2=present) 14:32:03 Presedation assessment performed by Shrinking Machine Operator RN. 14:32:05 Patient has been NPO for More than 6Hrs. 14:32:09 Skin Breakdown none per pt 14:32:22 Patient Warmer Placed on the Table. 14:32:30 Elizabeth Prominences Protected 14:32:33 A # 20 IV was noted in the Antecubital (right). Grade = 0 IV Solutions given in lab by Johnathon Man, RN in Right Antecubital via Peripheral IV. Pump/Dri p Flow = 100 ml/hr using 14:32:34 NaCl .9. 14:32:35 History and physical on the chart or being dictated. Assessment: Initial Case, HR=59 BPM, Rhythm=irreg, ONUJ=753/78 mmhg, Chest Pain=0, Edema=None, Color=Normal, Skin = Warm, Dry 14:32:39 Right Pulses: Demetrio Ped=2, Femoral=2, Radial=2 Lower Right Extremities: Color=Normal Lower Left Extremities: Color=Normal Vitals capture started with the following parameters, Patient=Adult, Interval=5 min, Initial Pr walqxt=288 mmHg, 14:41:58 Deflation Rate=5 mmHg, Cuff placed on Right Arm 14:42:30 Reference ECG taken 14:42:44 HR=66 bpm, BWSX=351/78 mmhg, SpO2=99.0 %, Resp=24 B/min, Pain=0, Lukas=10, Price=2 14:46:46 Right groin and right radial prepped with 2% chlorhexidine, and with a 3 min. waiting time. 14:47:39 Pressure channel 1 zeroed. 14:47:41 HR=63 bpm, JSQV=252/81 mmhg, SpO2=99.0 %, Resp=17 B/min, Pain=0, Lukas=10, Price=2 14:51:24 0.5 mg VERSED given in lab by Johnathon Man RN in Right Antecubital via Peripheral IV. Time Out. Correct patient, correct procedure,correct physician, power injector not loaded with contrast with surgical 14:52:01 team present. Time Out Concurred by , individual staff in procedure 14:52:21 Case Start 14:52:40 HR=63 bpm, KNCH=559/84 mmhg, SpO2=98.0 %, Resp=8 B/min, Pain=0, Lukas=10, Price=2 14:53:22 1 mL 1% XYLOCAINE given in lab by Clive Light in Right Radial via Subcutaneous. 14:53:34 25 mcg FENTANYL given in lab by Johnathon Man RN in Left Antecubital via Peripheral IV. 14:55:04 Access site was right Radial Artery. A SHEATH, FR6 TRANSRADIAL SLENDER 10CM FR 6 was advanced into the Radial (right) using the Perc utaneous 14:55:14 technique. 5 mL (Bolus) RADIAL COCKTAIL given in lab by Clive Light via Radial. Using [Solution Name ]. Reason: Ntg 14:56:14 200mcg Verapamil 2.5mg Heparin 3600U. A 3DRC INFINITI CATHETER FR 5 was advanced over a wire. OMNIPAQUE, 350 MG, 150ML 150ML was used for 14:56:39 injections. 14:57:43 HR=66 bpm, ZLWO=449/77 mmhg, SpO2=96.0 %, Resp=0 B/min, Pain=0, Lukas=10, Price=2 Recorded Pressure: LV, HR=65, Condition=Condition 1 14:58:49 (Left Ventricle) LV 128/1/21 Recorded Pressure: LV, Ao, HR=66, Condition=Condition 1 14:59:33 (Left Ventricle) LV 120/1/23, (Aorta) Ao 111/68/86 Recorded Pressure: Ao, HR=66, Condition=Condition 1 14:59:57 (Aorta) Ao 109/75/92 15:00:35 The RCA was injected and visualized at various angles. OMNIPAQUE, 350 MG, 150ML 150ML used . After removing the current catheter a JL 3.5 INFINITI CATHETER FR 5 was advanced over a WIRE, E XCHANGE 260CM 15:01:51 3MMJ 260CM. 15:02:38 HR=62 bpm, IFTZ=554/72 mmhg, SpO2=95.0 %, Resp=8 B/min, Pain=0, Lukas=10, Price=2 15:05:02 The LCA was injected and visualized at various angles. OMNIPAQUE, 350 MG, 150ML 150ML used . 15:07:11 A WIRE, EXCHANGE 260CM 3MMJ 260CM was inserted via Radial (right). 15:07:33 Catheter was removed 15:07:35 Wire removed 15:07:41 HR=61 bpm, TBXK=616/74 mmhg, SpO2=95.0 %, Resp=8 B/min, Pain=0, Lukas=10, Price=2 Radial Compression Device Used. 9 mLs of air placed in BAND, RADIAL COMPRESSION TR SHORT 24 24C M. Affected 15:10:45 hand 98 % O2 saturation. 15:11:09 Case End 15:11:21 Catheter(s) removed without difficulty 15:11:28 No case complications noted. 15:11:29 Cine recording checked. 15:11:34 Bedside Report will be given. 15:11:37 Contrast Scanned 15:11:40 A Left Heart Cath was performed. 15:12:28 DOCU called. Spoke to Jass. 15:15:39 Patient moved to [facility] End Study - Contrast Media Used In Study Contrast Total Opened (mL) Total Used (mL) Total Wasted (mL) Omnipaque 50 50 0 End Study - Maximum Contrast Load Max Contrast Load (mL) 505.6 End Study - Radiation Exposure Fluoro Time (minutes) 3.1 End Study - Sheaths Sheaths Pulled By Sheath Hold Time (min) Clive Light End Study - Patient Disposition Complications Transferred To Interventional Outcome No Shrinking Machine Operator Holding No attempt made
--- NOTE | 2017-04-12 15:51 | MB ---
cc: CLIVE LEWIS DO DATE OF CONSULTATION: April 12, 2017 REASON FOR CONSULTATION Syncope, abnormal EKG, abnormal stress test. HISTORY OF PRESENT ILLNESS Troy Casas is a pleasant 51-year-old male who presented to [facility] emergency room on April 10, 2017 after two episodes of syncope. He had normal day on TuesdayApril 10 and decided to have a few beers, somewhere between two and four total. He finished cooking dinner he was sitting in a chair eating dinner with his family. He does not remember the episode or beforehand but per the family. He went out for 45 seconds with no response. During this they were unsure if he was breathing but he sounded as if he was somewhat gurgling. During the episode he did have some urinary incontinence but no tongue biting or shaking motion. It does not sound as if he had any post ictal episode afterwards. 3-4 minutes after the first episode he had a similar type second episode which he lower himself to the ground. He denies any chest pain, shortness of breath, palpitations before, during or after the episodes. He states that he has never had a syncopal or presyncopal episode until April 10. In seeing him he is currently comfortable without chest pain or shortness of breath. PAST MEDICAL HISTORY 1. Hyperlipidemia 2. Depression. PAST SURGICAL HISTORY 1. Carpal tunnel surgery. 2. Vasectomy. ALLERGIES NO KNOWN DRUG ALLERGIES. MEDICATIONS 1. Multivitamin daily 2. Ibuprofen 600 mg daily as needed for pain. 3. Prozac 10 mg daily 4. Lovastatin 20 mg daily. SOCIAL HISTORY Denies tobacco. Drinks a few beers every now and then, mostly a social drinker. Denies drug abuse. Works as a professor at [employer]. FAMILY HISTORY Father has Amyloidosis. Brother has atrial fibrillation most likely due to heavy alcohol use. REVIEW OF SYSTEMS 14-systems were reviewed including osteopathic pertinent positives and negatives above otherwise negative. PHYSICAL EXAMINATION VITAL SIGNS: Temperature 98.0, heart rate 62, blood pressure 118/77, respirations 16, pulse ox 97% on room air. IN GENERAL: The patient appears well in no acute distress, alert awake and oriented x3. Extraocular muscles intact. Mucous membranes moist. NECK: Supple. No JVD at 45 degrees. No carotid bruits heard bilaterally. Carotid upstroke is brisk in nature. HEART: Heart is regular rate and rhythm. Positive first and second heart sounds with no murmurs, gallops or rubs. LUNGS: The lungs are clear to auscultation bilaterally. No wheezes, rales or rhonchi. ABDOMEN: Abdomen is soft, nontender, Nondistended, organomegaly noted. EXTREMITIES: Show no clubbing, cyanosis or edema. Femoral and distal pulses intact bilaterally. NEUROLOGICALLY: No focal deficits. SKIN: The skin is warm, dry and intact. MUSCULOSKELETAL: Osteopathic with no kyphoscoliosis, lordosis or paraspinal tender points. LABORATORY FINDINGS Hemoglobin 13.5, hematocrit 38.9, platelets 174. Potassium 3.8, BUN 17, creatinine 0.95, troponin less than 0.02, triglycerides 211, total cholesterol 169, LDL 70, HDL 56.5. Echocardiogram (April 12, 2017) ejection fraction 60-65%, mild to moderate concentric LVH, trace mitral regurgitation, trace tricuspid regurgitation. Myocardial perfusion imaging (April 12, 2017) small size, mild severity anterior wall perfusion abnormality without redistribution. Carotid ultrasound negative for significant stenosis. IMPRESSION 1. Syncopal episode of unknown cause. 2. Abnormal EKG with trifascicular block. 3. Ejection fraction 60-65%, mild to moderate concentric LVH, trace mitral and tricuspid regurgitation by echocardiogram (April 12, 2017) 4. Abnormal myocardial perfusion imaging with a small size, mild severity anterior wall perfusion abnormality without redistribution. RECOMMENDATIONS 1. Mr. Casas had two syncopal episodes which overall are concerning, especially with a trifascicular block on his EKG. 2. Because of the abnormal EKG and a stress test showing possible scar of the anterior wall, although the patient appears to never have had symptoms, I feel that his coronary anatomy should be defined to determine if he has multi-vessel CAD. He will undergo cardiac catheterization today. 3. Risks, benefits and alternatives were explained to him he consents as such. 4. Either way he needs to be evaluated by Dr. Mao, EP cardiology, for trifascicular block with syncope for further determination of pacemaker versus EP study. 5. Further recommendations will be made based on the hospital course. Thank you for allowing me to see Troy Casas, any questions please do not hesitate to call. Clive CONTRERASP/mh /1:36 PM /3:32 PM MTDD
--- NOTE | 2017-04-12 16:01 | MG ---
cc: JAZMIN DELACRUZ MD Lab No: [id number] Date: 04/12/2017 Age: 51 Sex: M Race: m DATE OF 8 1965 HISTORY: A 51 old female history of syncopal type episodes. PROCEDURE: Appears to be in drowsy/ stage I sleep at the beginning of the recording with low amplitude generalized theta activity occurring 10-30 microvolts, [place] movements, mild driving with photic stimulation occurring at the beginning of the recording. Good arousal of posterior rhythm, did increment up to 8-9 Hz. Appeared to go back into sleep state. Spindles occurring suggestive of stage II sleep. Single lead EKG showing sinus rhythm premature contractions and possible bundle branch block. INTERPRETATION Mainly normal sleep state with minimal brief normal wakefulness. No epileptic activity. Mild cardiac arrhythmia noted as described above. Clinical correlation. Jazmin Delacruz MD MG/ /3:41 PM /3:55 PM
--- NOTE | 2017-04-12 18:29 | MA ---
cc: CLIVE LEWIS DO DATE: 04/12/2017 PROCEDURE Left heart catheterization, coronary angiogram, moderate sedation 20 minutes PREPROCEDURE DIAGNOSIS Abnormal EKG, abnormal stress test, syncopal episode. POSTPROCEDURE DIAGNOSIS Minimal coronary artery disease, syncope with tri-fascicular block. MEDICATIONS 1. Versed 0.5 mg. 2. Fentanyl 25 mcg. 3. Verapamil 2.5 mg. 4. Heparin 3600 units. 5. Nitro 200 mcg. CONTRAST USED 50 cc FLUOROSCOPY 3.1 minutes MODERATE SEDATION 20 minutes ESTIMATED BLOOD LOSS 5 cc . PROCEDURAL SUMMARY Troy Casas is a pleasant 51-year-old male who presented to [facility] after two syncopal episodes. Because of his abnormal EKG, he underwent a pharmacologic nuclear stress test which showed possible scar of the anterior wall. Because of the extensive changes in his EKG from previous as well as a stress test showing possible scar, I felt that his coronary anatomy needed to be defined as he may have multivessel coronary artery disease. Risks, benefits and alternatives were explained to him and he consented as such. He was brought to lab and prepped in the usual sterile fashion. Right radial artery was accessed using a modified Seldinger technique and placement of a 5/6 Greek slender sheath. This was easily aspirated and flushed. A 3 DRC catheter was advanced over a J-wire to the ascending aorta and across the aortic valve for measurement of left ventricular pressure. This was pulled back across the aortic valve showing no significant gradient of aortic stenosis. 3 DRC catheter was used for selective angiography of the right coronary artery. The 3 DRC was then exchanged for a JL 3.5 which was used for selective angiography of the left coronary system. JL 3.5 was removed over a J-wire. A radial band was placed over the arteriotomy site for hemostasis. The patient left the dairy and food laboratory assistant cardiovascularly stable. FINDINGS Left main: Normal vessel with no disease. Adequate reflux. Bifurcates into an LAD and circumflex. LAD: Normal-size vessel with no significant disease throughout its course. Distally it tapers down at the apex. It has two diagonals with no significant disease. Left circumflex: Normal size vessel with no disease. It gives off three obtuse marginals with the first obtuse marginal relatively small and no disease. The second and third obtuse marginals are larger vessels with no significant disease. LVEDP: 20. IMPRESSION 1. Abnormal stress test with possible scar of the anterior wall and undefined coronary anatomy. 2. Cardiac catheterization showing minimal coronary artery disease as above. 3. EKG showing trifascicular block. 4. Syncopal episode with trifascicular block. 5. Ejection fraction 60-65%, mild to moderate concentric LVH, trace mitral regurgitation, trace tricuspid regurgitation by echocardiogram (April 12, 2017). RECOMMENDATIONS 1. Mr. Casas appears to have no significant coronary artery disease by cardiac catheterization. 2. As he has had a syncopal episode with trifascicular block, he will be evaluated by Dr. Mao, EP cardiology, for consideration of EP study versus placement of a permanent pacemaker. Thank you for allowing me to see Troy Casas. If there are any questions, please do not hesitate to call. Clive Lewis DO VGP/LATESHA /3:40 PM /6:04 PM
[2017-04-13] VITALS (18 sets, daily range): BP systolic 118–142; BP diastolic 75–83; PULSE 58–99; RESP 17–20; TEMP 98.2–98.9; O2SAT 59–99
[2017-04-13] MEDS: SODIUM CHLORIDE 0.9% FLUSH 10 ML FLUSH IV FLUSH SCH (09:00)
[2017-04-13] MEDS: PRAVASTATIN SOD 20 MG TAB PO SCH (09:00)
[2017-04-13] MEDS: ASPIRIN EC 81 MG TABEC PO SCH (09:54)
[2017-04-13] MEDS: FLUoxetine HCL 10 MG CAP PO SCH (09:54)
--- NOTE | 2017-04-13 10:45 | PD.CARD.PN ---
Subjective Subjective Remarks No events overnight No chest pain/SOB/pre-syncopal/syncopal events Objective Medications Current Medications Medications (Trade) Dose Ordered Sig/Bharat Route Start Time Stop Time Status Last Admin (NS Flush) 2 ml BID IV FLUSH 04/11/17 09:00 04/13/17 09:00 (NS Flush) 2 ml UNSCH PRN IVF 04/11/17 02:00 Sodium Chloride 1,000 ml @ 100 mls/hr Q10H IV 04/11/17 01:51 04/12/17 12:02 (PROzac) 10 mg DAILY PO 04/11/17 09:00 04/13/17 09:54 (Pravachol) 20 mg DAILY PO 04/11/17 09:00 04/13/17 09:00 (Ecotrin Ec) 81 mg DAILY PO 04/11/17 11:00 04/13/17 09:54 Vital Signs / I&O Vital Signs Date Time Temp Pulse Resp B/P (MAP) Pulse Ox O2 Delivery O2 Flow Rate FiO2 04/13/17 07:20 98.3 61 17 131/82 (98) 97 04/13/17 07:00 59 04/13/17 06:00 58 04/13/17 05:00 66 04/13/17 04:00 62 04/13/17 03:00 58 04/13/17 02:00 62 04/13/17 01:00 66 04/13/17 00:00 64 04/13/17 00:00 98.9 64 20 142/79 (100) 99 04/12/17 22:15 98.6 67 18 139/78 (98) 97 04/12/17 16:07 98 Room Air 04/12/17 12:30 63 04/12/17 11:55 98.0 62 16 118/77 (91) 97 I/O 04/12/17 04/12/17 04/12/17 04/13/17 04/13/17 04/13/17 07:00 15:00 23:00 07:00 15:00 23:00 Intake Total 40 ml Balance 40 ml Intake Oral 40 ml # Voids 3 Physical Exam GENERAL: NAD, AAOx3 SKIN: Warm and dry. HEAD: Atraumatic. Normocephalic. EYES: Pupils equal and round. No scleral icterus. No injection or drainage. ENT: No nasal bleeding or discharge. Mucous membranes pink and moist. NECK: Trachea midline. No JVD. CARDIOVASCULAR: Regular rate and rhythm. RESPIRATORY: No accessory muscle use. Clear to auscultation. Breath sounds equal bilaterally. GASTROINTESTINAL: Abdomen soft, non-tender, nondistended. Hepatic and splenic margins not palpable. MUSCULOSKELETAL: Extremities without clubbing, cyanosis, or edema. No obvious deformities. Right radial no hematoma, neurovascularly intact distally NEUROLOGICAL: Awake and alert. No obvious cranial nerve deficits. Motor grossly within normal limits. Five out of 5 muscle strength in the arms and legs. Normal speech. PSYCHIATRIC: Appropriate mood and affect; insight and judgment normal. Laboratory Laboratory Tests Test 04/10/17 22:57 04/10/17 23:19 04/11/17 10:36 04/12/17 06:00 White Blood Count 6.3 TH/MM3 (4.0-11.0) 4.5 TH/MM3 (4.0-11.0) Red Blood Count 4.34 MIL/MM3 (4.50-5.90) 4.27 MIL/MM3 (4.50-5.90) Hemoglobin 13.4 GM/DL (13.0-17.0) 13.5 GM/DL (13.0-17.0) Hematocrit 39.5 % (39.0-51.0) 38.9 % (39.0-51.0) Mean Corpuscular Volume 91.0 FL (80.0-100.0) 91.1 FL (80.0-100.0) Mean Corpuscular Hemoglobin 30.9 PG (27.0-34.0) 31.6 PG (27.0-34.0) Mean Corpuscular Hemoglobin Concent 33.9 % (32.0-36.0) 34.7 % (32.0-36.0) Red Cell Distribution Width 13.0 % (11.6-17.2) 13.0 % (11.6-17.2) Platelet Count 215 TH/MM3 (150-450) 174 TH/MM3 (150-450) Mean Platelet Volume 9.1 FL (7.0-11.0) 8.8 FL (7.0-11.0) Neutrophils (%) (Auto) 47.4 % (16.0-70.0) 47.8 % (16.0-70.0) Lymphocytes (%) (Auto) 39.1 % (9.0-44.0) 37.8 % (9.0-44.0) Monocytes (%) (Auto) 10.3 % (0.0-8.0) 10.0 % (0.0-8.0) Eosinophils (%) (Auto) 2.8 % (0.0-4.0) 3.9 % (0.0-4.0) Basophils (%) (Auto) 0.4 % (0.0-2.0) 0.5 % (0.0-2.0) Neutrophils # (Auto) 3.0 TH/MM3 (1.8-7.7) 2.1 TH/MM3 (1.8-7.7) Lymphocytes # (Auto) 2.5 TH/MM3 (1.0-4.8) 1.7 TH/MM3 (1.0-4.8) Monocytes # (Auto) 0.7 TH/MM3 (0-0.9) 0.4 TH/MM3 (0-0.9) Eosinophils # (Auto) 0.2 TH/MM3 (0-0.4) 0.2 TH/MM3 (0-0.4) Basophils # (Auto) 0.0 TH/MM3 (0-0.2) 0.0 TH/MM3 (0-0.2) CBC Comment DIFF FINAL DIFF FINAL Differential Comment Prothrombin Time 10.8 SEC (9.8-11.6) Prothromb Time International Ratio 1.0 RATIO Activated Partial Thromboplast Time 26.8 SEC (24.3-30.1) D-Dimer Quantitative (PE/DVT) 0.22 MG/L FEU (0.00-0.50) Blood Urea Nitrogen 20 MG/DL (7-18) 17 MG/DL (7-18) 17 MG/DL (7-18) Creatinine 1.09 MG/DL (0.60-1.30) 1.09 MG/DL (0.60-1.30) 0.95 MG/DL (0.60-1.30) Random Glucose 88 MG/DL (74-106) 147 MG/DL (74-106) 95 MG/DL (74-106) Total Protein 7.3 GM/DL (6.4-8.2) Albumin 3.6 GM/DL (3.4-5.0) Calcium Level 8.1 MG/DL (8.5-10.1) 8.6 MG/DL (8.5-10.1) 8.3 MG/DL (8.5-10.1) Magnesium Level 1.9 MG/DL (1.5-2.5) Alkaline Phosphatase 58 U/L (45-117) Aspartate Amino Transf (AST/SGOT) 22 U/L (15-37) Alanine Aminotransferase (ALT/SGPT) 32 U/L (12-78) Total Bilirubin 0.3 MG/DL (0.2-1.0) Sodium Level 134 MEQ/L (136-145) 140 MEQ/L (136-145) 141 MEQ/L (136-145) Potassium Level 3.9 MEQ/L (3.5-5.1) 4.0 MEQ/L (3.5-5.1) 3.8 MEQ/L (3.5-5.1) Chloride Level 102 MEQ/L (98-107) 107 MEQ/L (98-107) 108 MEQ/L (98-107) Carbon Dioxide Level 22.3 MEQ/L (21.0-32.0) 24.8 MEQ/L (21.0-32.0) 26.6 MEQ/L (21.0-32.0) Anion Gap 10 MEQ/L (5-15) 8 MEQ/L (5-15) 6 MEQ/L (5-15) Estimat Glomerular Filtration Rate 72 ML/MIN (>89) 72 ML/MIN (>89) 84 ML/MIN (>89) Hemoglobin A1c 5.3 % (4.3-6.0) Total Creatine Kinase 81 U/L (39-308) 59 U/L (39-308) Troponin I LESS THAN 0.02 NG/ML LESS THAN 0.02 NG/ML Ethyl Alcohol Level 146 MG/DL (0-5) Urine Color YELLOW (YELLW/STRAW) Urine Turbidity CLEAR (CLEAR) Urine pH 5.0 (5.0-8.5) Urine Specific [place] 1.014 (1.002-1.035) Urine Protein NEG mg/dL (NEG-TRACE) Urine Glucose (UA) NEG mg/dL (NEG) Urine Ketones NEG mg/dL (NEG) Urine Occult Blood NEG (NEG) Urine Nitrite NEG (NEG) Urine Bilirubin NEG (NEG) Urine Urobilinogen LESS THAN 2.0 MG/DL (LESS Urine Leukocyte Esterase NEG (NEG) Urine RBC LESS THAN 1 /hpf (0-3) Urine WBC LESS THAN 1 /hpf (0-5) Microscopic Urinalysis Comment CULT NOT INDICATED Urine Opiates Screen NEG (NEG) Urine Barbiturates Screen NEG (NEG) Urine Amphetamines Screen NEG (NEG) Urine Benzodiazepines Screen NEG (NEG) Urine Cocaine Screen NEG (NEG) Urine Cannabinoids Screen NEG (NEG) Triglycerides Level 211 MG/DL (42-150) Cholesterol Level 169 MG/DL (120-200) LDL Cholesterol 70 MG/DL (0-99) HDL Cholesterol 56.5 MG/DL (40.0-60.0) Cholesterol/HDL Ratio 2.99 RATIO Assessment and Plan Problem List: (1) Syncope ICD Codes: R55 - Syncope and collapse Status: Acute (2) HLD (hyperlipidemia) ICD Codes: E78.5 - Hyperlipidemia, unspecified Status: Chronic Assessment and Plan 1) Cardiac catheterization showing no significant CAD 2) Trifascicular block on EKG with recent syncope Plan for EP study today with Dr. Mao and possible PPM placement 3) Will defer to Dr. Mao for management 4) Upon discharge, may follow up with Dr. Mao or myself Problem Qualifiers (1) Syncope: Qualified Codes: R55 - Syncope and collapse Clive Light DO Apr 13, 2017 10:45
--- NOTE | 2017-04-13 11:04 | HHI.PR ---
Subjective Remarks Follow-up syncope/heart block 04/13/17-patient seen and examined, denies any syncopal episode. Denies any chest pain or shortness of breath. Stress test without any ischemia. Case discussed with aerial hurricane hunter Dr. Mao Objective Vitals Vital Signs Date Time Temp Pulse Resp B/P (MAP) Pulse Ox O2 Delivery O2 Flow Rate FiO2 04/13/17 07:20 98.3 61 17 131/82 (98) 97 04/13/17 07:00 59 04/13/17 06:00 58 04/13/17 05:00 66 04/13/17 04:00 62 04/13/17 03:00 58 04/13/17 02:00 62 04/13/17 01:00 66 04/13/17 00:00 64 04/13/17 00:00 98.9 64 20 142/79 (100) 99 04/12/17 22:15 98.6 67 18 139/78 (98) 97 04/12/17 16:07 98 Room Air 04/12/17 12:30 63 04/12/17 11:55 98.0 62 16 118/77 (91) 97 I/O 04/12/17 04/12/17 04/12/17 04/13/17 04/13/17 04/13/17 07:00 15:00 23:00 07:00 15:00 23:00 Intake Total 40 ml Balance 40 ml Intake Oral 40 ml # Voids 3 Result Diagram: 04/12/17 0600 04/12/17 06 Imaging Last Impressions Myocardial Perfusion Scan Nuc Med 04/12/17 06 Signed Impressions: Service Date/Time: Wednesday, April 12, 2017 08:32 - CONCLUSION: Small size mild severity anterior wall perfusion abnormality without redistribution. RISK CATEGORY: Low (<1%% Annual Mortality Rate) Jet Kirby MD Carotid Artery Ultrasound 04/11/17 0000 Signed Impressions: Service Date/Time: Tuesday, April 11, 2017 12:38 - CONCLUSION: Negative for hemodynamically significant stenosis.. Westley Zapata MD FACR Head CT [id number] Signed Impressions: Service Date/Time: Monday, April 10, 2017 22:46 - CONCLUSION: No acute intracranial abnormality. Jet Moran MD Chest X-Ray [id number] Signed Impressions: Service Date/Time: Monday, April 10, 2017 22:58 - CONCLUSION: No evidence of acute cardiopulmonary disease. Jet Moran MD Objective Remarks GENERAL: NAD SKIN: Warm and dry. HEAD: Normocephalic. EYES: No scleral icterus. No injection or drainage. NECK: Supple, trachea midline. No JVD or lymphadenopathy. CARDIOVASCULAR: Regular rate and rhythm without murmurs, gallops, or rubs. RESPIRATORY: Breath sounds equal bilaterally. No accessory muscle use. GASTROINTESTINAL: Abdomen soft, non-tender, nondistended. MUSCULOSKELETAL: No cyanosis, or edema. BACK: Nontender without obvious deformity. No CVA tenderness. A/P Problem List: (1) Syncope ICD Code: R55 - Syncope and collapse Status: Acute (2) HLD (hyperlipidemia) ICD Code: E78.5 - Hyperlipidemia, unspecified Status: Chronic (3) Heart block ICD Code: I45.9 - Conduction disorder, unspecified Assessment and Plan 51-year-old man with Syncope: unclear etiology, suspect cardiogenic vs vasovagal in combination with alcohol use. -Check EEG as there was reported incontinence, results pending -2 D echocardiogram with EF of 60-65% -U/S carotids unremarkable -Lexiscan stress test without any ischemia -Monitor Neuro checks -HgbA1C 5.3 Trifascicular Block -ACS ruled out per protocol with serial cardiac enzyme and EKGs -Nuclear stress test showed small size mild severity anterior wall perfusion abnormality without redistribution -Cardiac Electrophysiology evaluation pending for possible PPM placement HLD: chronic, continue home medication lovastatin Depression: Continue home medication Prozac DVT prophylaxis: Heparin Problem Qualifiers (1) Syncope: Qualified Codes: R55 - Syncope and collapse Janusz Velarde MD Apr 13, 2017 11:04
--- NOTE | 2017-04-13 11:17 | MB ---
cc: EDDI ANGELES M.D. DATE OF CONSULTATION: 04/12/2017 REASON FOR CONSULTATION: Syncopal episode. HISTORY OF PRESENT ILLNESS: Mr. Casas is a 51-year-old gentleman with a the history of hyperlipidemia, note there is a history of systemic illness, very active, admitted to the emergency room due to a syncopal episode. Gentleman's fall was at home and he suddenly passed out. Has head trauma. Subsequently electrocardiogram indicates trifascicular block that was new compared to previous electrocardiogram. The patient was admitted. Left heart catheterization indicated no occlusion, normal ejection fraction. I was consulted for further evaluation and management. The chart was reviewed. The patient was evaluated. ALLERGIES None. SOCIAL HISTORY The patient drank but is negative for smoking. FAMILY HISTORY Noncontributory to his current medical condition. MEDICATIONS 1. Multivitamin. 2. Ibuprofen. 3. Prozac. 4. Lovastatin. REVIEW OF SYSTEMS Refers no chest pain or chest discomfort. No vomiting. No fever. PHYSICAL EXAMINATION: Physical exam, alert, fully oriented, pleasant. VITAL SIGNS: Blood pressure on evaluation 118/77, pulse 62, respiratory 18 LUNGS: Ventilated. CARDIOVASCULAR SYSTEM: S1-S2 regular. No gallop. ABDOMEN: Soft. No mass or bruit EXTREMITIES: No edema. RADIOLOGIC: Electrocardiogram sinus rhythm, left anterior fascicular block, right bundle-branch block. NV interval over 240 milliseconds. LABORATORY FINDINGS: Hemoglobin is 11.3, White blood cells 4.5, potassium of 3.8, creatinine 0.95, HDL is 56, LDL 70. Total cholesterol is 169. ASSESSMENT AND RECOMMENDATIONS Mr. Casas has a syncopal episode. There is new <<2:42>> on electrocardiogram. NV interval is very prolonged. At this point I discussed with him the option of electrophysiology study. If there is <<2:53>> the gentleman is going to need a permanent pacemaker. If not I am going to insert the loop recorder. The risks, the nature and the benefit of the procedure are clearly stated to him and his which include pneumothorax, cardiac perforation, stroke and even understood and agreed to proceed. Procedure will be performed during hospitalization. Eddi Angeles MD /lucas /8:34 AM /9:31 AM
[2017-04-13] MEDS ORDERED: HEPARIN-NS/PF INJ 1,000 ML ONE (15:39)
[2017-04-13] MEDS ORDERED: SODIUM CHLOR 0.9% 250 ML INJ 250 ML ONE ×2 (15:41→16:37)
[2017-04-13] MEDS ORDERED: ISOPROTERENOL HCL 1 MG/5 ML AMP ONE (15:41)
[2017-04-13] MEDS ORDERED: MIDAZOLAM HCL 5 MG/5 ML VIAL ONE (15:41)
--- NOTE | 2017-04-13 16:32 | CATHPROC ---
Unified Office HIS Report Study Information Study Number Admission Scheduled Start Study Start [id number] Apr 11 2017 1:51AM 04/13/2017 Apr 13 2017 2:31PM [place] Service Electrophysiology Study Admit Source Facility Department Other [facility] - Landscaper Physician and Clinical Staff Initial Maxine Barrera Garage Laborer Dereje Cuevas,RT(R) Other Anesthesia, CHEF GERMAN Recorder Rox Cueva,YAMILKA Scrub Kristi Sidhu,RT(R) TECH2 Equipment Time Conservation Scientist Description Size Mfg Part Number Used/Scraped [id number] 14:35 MEDLINE INDUSTRIES PACK, CCL CUSTOM * Used *[id number] 14:35 Work4 PACER VIGIL, LIMB * 2530 *[id number] Used [id number] 14:35 Kodable BLANKET,WARM AIR CCL * Used *[id number] 15:41 [employer] MEDICAL CATHETER, JSN, QUAD FR 5 Used *[id number] 15:41 [employer] MEDICAL CATHETER, JSN, QUAD FR 5 Used *[id number] 15:41 [employer] MEDICAL CATHETER, JSN, QUAD FR 5 Used *[id number] 380663 15:41 [employer] MEDICAL CATHETER, JSN, QUAD FR 5 Used *[id number] 15:41 [employer] MEDICAL SHEATH, EPS, FR5 FAST CATH FR 5 Used *[id number] 15:41 [employer] MEDICAL SHEATH, EPS, FR5 FAST CATH FR 5 Used *[id number] 15:41 [employer] MEDICAL SHEATH, EPS, FR5 FAST CATH FR 5 Used *[id number] 829431 15:41 [employer] MED[employer] SHEATH, EPS, FR6 FAST CATH FR 6 Used *[id number] History: Allergies Allergy Reaction No Known Allergies History: Risk Factors Dyslipidemia Yes Labs Hgb (g/dl) Hct (%) RBC (MIL/MM3) WBC (l/cumm) Platelets (thousands) 11.60-17.00 35.00-51.00 4.00-5.90 4.00-11.00 150.00-450.00 13.0 38 4.2 4.5 174 Glucose (mg/dl) BUN (mg/dl) Creatinine (mg/dl) BUN:Creatinine (1:x) 74.00-106.00 7.00-18.00 0.50-1.30 10.00-20.00 95 17 0.9 18.9 Na (meq/l) K (meq/l) 136.00-145.00 3.50-5.10 141 3.8 INR (PTT:PT) 0.90-1.10 1 Medication Medication Total Dose (Bolus/Oral) Medication Total Dosage/Unit 1% XYLOCAINE 20 mL Medications (Bolus/Oral) Medication Time Given Dosage/Unit Administered By Reason 1% XYLOCAINE 04/13/2017 4:18:37 PM 20 mL Maxine Mao 20 mL 1% XYLOCAINE given in lab by Maxine Mao in Right Groin via Subcutaneous. Initial Case Assessment Cardiovascular HR Rhythm NIBP Chest Pain 61 sr 134/84 0 Edema Present Skin color Skin None Normal Warm Dry Circulatory - Right Pulses Dorsalis Pedis 1 Scale (0,1,2,3,4,d) Circulatory - Left Pulses Dorsalis Pedis 1 Scale (0,1,2,3,4,d) Circulatory - Lower Extremities Color Lower Right Color Lower Left Normal Normal Neurological State Oriented to time-place- Alert Moves all extremities person Respiration - General Respiration Rate SpO2 (%) (B/min) 20 99 Chronological Log Time Study Chronological Log 15:21:57 Patient arrived via Bed. 15:21:57 Patient Name, D.O.B, / Armband Verified By R.N. 15:21:58 Consent signed by the physician and the patient and verified by the Landscaper staff. 15:21:59 Pre-op and post- op instructions given; patient acknowledges understanding of instructions. 15:22:01 Presedation assessment performed by Landscaper RN. 15:22:03 Patient has been NPO for More than 6Hrs. Skin Breakdownnone per patient 15:22:04 15:22:19 Patient Warmer Placed on the Table. 15:22:20 Disposable Defibrillator Pads Placed On Patient. 15:22:21 Elizabeth Prominences Protected 15:40:50 Anesthesia at bedside. Assumes care of patient. Jose Elias 15:43:29 A # 20 IV was noted in the Antecubital (right). Grade = 0 0.9ns kvo 15:43:29 A # 20 IV was noted in the Forearm (left). Grade = 0 0.9ns kvo 15:43:30 History and physical on the chart or being dictated. Assessment: Initial Case, HR=61 BPM, Rhythm=sr, CFLR=122/84 mmhg, Chest Pain=0, Edema=None, Col or=Normal, Skin = Warm, Dry Right Pulses: Demetrio Ped=1 Left Pulses: Demetrio Ped=1 15:43:36 Lower Right Extremities: Color=Normal Lower Left Extremities: Color=Normal Neurological: State=Alert, Ox3, QUINONES Respiration: Resp=20 B/min, SpO2=99 % 15:43:37 Table restraints applied according to hospital policy 15:43:45 Bilateral groins prepped with 2% chlorhexidine, and with a 3 min. waiting time. 15:46:47 Reference ECG taken 15:53:01 MD paged 15:55:05 MD responded 16:16:13 MD arrived. Time Out. Correct patient, procedure, procedure equipment, site and side verified with physicia n present. Time 16:18:00 concurred by MD, individual staff and CHEF GERMAN. Time Out #2 - Consents verified, patient in correct position, all results are labled and displa yed, safety precautions 16:18:15 taken, antibiotics administered. Time out concurred by MD, individual staff and CHEF GERMAN in procedu re 16:18:34 Case Start 16:18:37 20 mL 1% XYLOCAINE given in lab by Maxine Mao in Right Groin via Subcutaneous. 16:19:13 Vascular access was obtained in the Fem Vein (right). 16:19:23 Vascular access was obtained in the Fem Vein (right). 16:19:45 Vascular access was obtained in the Fem Vein (right). 16:19:54 Vascular access was obtained in the Fem Vein (right). 16:20:40 A SHEATH, EPS, FR5 FAST CATH FR 5 was advanced into the Fem Vein (right) using the Modified Seldinger technique. 16:20:59 A SHEATH, EPS, FR5 FAST CATH FR 5 was advanced into the Fem Vein (right) using the Modified Seldinger technique. 16:21:29 A SHEATH, EPS, FR5 FAST CATH FR 5 was advanced into the Fem Vein (right) using the Modified Seldinger technique. 16:21:58 A SHEATH, EPS, FR6 FAST CATH FR 6 was advanced into the Fem Vein (right) using the Modified Seldinger technique. A CATHETER, JSN, QUAD FR 5 was advanced vis Fem Vein (right) and placed in the CS. Placement wa s visually 16:22:25 confirmed under fluoroscopy. A CATHETER, JSN, QUAD FR 5 was advanced vis Fem Vein (right) and placed in the HIS. Placement w as visually 16:23:20 confirmed under fluoroscopy. A CATHETER, JSN, QUAD FR 5 was advanced vis Fem Vein (right) and placed in the RVA. Placement w as visually 16:23:25 confirmed under fluoroscopy. A CATHETER, JSN, QUAD FR 5 was advanced vis Fem Vein (right) and placed in the HRA. Placement w as visually 16:24:25 confirmed under fluoroscopy. 16:24:28 EPS in progress 16:30:00 EPS complete. 16:31:38 Quads removed. Sheaths remain in place. 16:31:40 Case End 16:31:54 EP Procedure was performed. 16:31:56 NOTE: This patient is undergoing an additional procedure while still in the Cardiac Cath La b. End Study - Contrast Media Used In Study Contrast Total Opened (mL) Total Used (mL) Total Wasted (mL) Unspecified 0 0 0 End Study - Maximum Contrast Load Max Contrast Load (mL) 505.6 End Study - Radiation Exposure Fluoro Time (minutes) 0.4 End Study - Patient Disposition Complications Transferred To Interventional Outcome No Landscaper Holding successful
[2017-04-13] MEDS ORDERED: VANCOMYCIN 500 MG VIAL ONE ×2 (16:36→17:35)
[2017-04-13] MEDS ORDERED: VANCOMYCIN HCL 1000 MG VIAL ONE (16:37)
[2017-04-13] MEDS ORDERED: LIDOCAINE HCL 2% 50 ML VIAL ONE ×2 (16:37→17:35)
[2017-04-13] MEDS ORDERED: ceFAZolin INJ 1,000 MG VIAL ONE (16:37)
--- NOTE | 2017-04-13 17:24 | CATHPROC ---
[employer] HIS Report Study Information Study Number Admission Scheduled Start Study Start [id number] Apr 11 2017 1:51AM 04/13/2017 Apr 13 2017 4:33PM [place] [facility] Cardiac Pacer/ICD Admit Source Facility Department Other [facility] - Systems Technologist Physician and Clinical Staff Initial Maxine Barrera Journeyman Sheet Metal Worker Dereje Cuevas,RT(R) Other Anesthesia, PHYSICS AND ASTRONOMY PROFESSOR Recorder Rox Cueva,YAMILKA Scrub Kristi Sidhu,RT(R) TECH2 Procedures Performed Procedure Lead Insertion Lead Revision Equipment Time Inspector Rubber Stamp Die Description Size Mfg Part Number Used/Scraped DERMABOND, ADHESIVE SKIN [id number] 16:56 CORDIS/PACER * Used GLUE MINI *[id number] DERMABOND, ADHESIVE SKIN [id number] 17:39 CORDIS/PACER * Used GLUE MINI *[id number] TP-1103 17:39 MEDLINE INDUSTRIES SUTURE, STRIP PLUS 1/2" * Used *[id number] TP-1103 16:56 MEDLINE INDUSTRIES SUTURE, STRIP PLUS 1/2" * Used *[id number] 16:56 MEDLINE PACER VIGIL, LIMB * 2530 *[id number] Used 17:39 MEDLINE PACER VIGIL, LIMB * 2530 *[id number] Used [id number] 17:39 MEDLINE PACER PACK, PACER CUSTOM * Used *[id number] 16:56 MEDLINE PACER PACK, PACER CUSTOM * Used *[id number] 16:56 [employer] MEDICAL PACER SAFE SHEATH, FR7, 13CM FR 7 [id number] Used 16:56 MERIT MEDICAL PACER SAFE SHEATH, FR7, 13CM FR 7 [id number]-[id number] Used 17:46 Needle Sponge Count 1 1 Used 17:47 Needle Sponge Count 10 10 Used 17:47 Needle Sponge Count 2 22 Used 16:51 Needle Sponge Count 2 22 Used 16:51 Needle Sponge Count 20 200 Used 16:51 Needle Sponge Count 3 3 Used SUTURE, 0 ETHIBOND [CT1] (CX21D), 8pk SUTURE, 0 ETHIBOND [CT1] (CX21D), 8pk SUTURE, 2-0 VICRYL [CT1] (CRA145C) SUTURE, 2-0 VICRYL [CT1] (ZRV581V) SUTURE, 2-0 VICRYL [CT1] (RLA797X) SUTURE, 2-0 VICRYL [CT1] (QQF666Q) [id number] 16:56 [employer] BLANKET,WARM AIR CCL * Used *[id number] [id number] 17:39 [employer] MEDICAL BLANKET,WARM AIR CCL * Used *[id number] [facility] PAD, ELECTROSURGICAL 17:39 * E7507 *[id number] Used SURGICAL GROUNDING ORANGE [facility] PAD, ELECTROSURGICAL 16:56 * E7507 *[id number] Used SURGICAL GROUNDING ORANGE 5076-52CM 17:07 VITATRON MEDTRONIC LEAD, CAPSUREFIX NOVUS 52CM 52CM Used *[id number] LEAD, CAPSUREFIX NOVUS, 5076-58CM 17:04 VITATRON MEDTRONIC 58CM Used 58CM *[id number] 16:58 VITATRON MEDTRONIC MONITOR, PACEMAKER\\ICD [id number] Used PACEMAKER, GALINDO WHEAT MRI 17:13 VITATRON MEDTRONIC OEA-DDDR [id number] Used SURESCAN [id number] 17:39 ZOLL MED[employer] YONG. ELECTRODE, PRO-PADZ BIPHASIC * Used *75603 0619-3530 16:56 [employer]OLL MEDICAL YONG. ELECTRODE, PRO-PADZ BIPHASIC * Used *61813 Equipment Model, Serial, Lot Number and Expiration Data Description Model Number Serial Number Lot Number Expiration Date LEAD, CAPSUREFIX NOVUS 52CM 5076-52 [id number] 01-06-2019 LEAD, CAPSUREFIX NOVUS, 58CM 5076-58 [id number] 10-22-2018 PACEMAKER, GALINDO WHEAT MRI [id number] 05-21-2018 SURESCAN Medication Medication Total Dose (Bolus/Oral) Medication Total Dosage/Unit 2% XYLOCAINE 150 mL Medications (Bolus/Oral) Medication Time Given Dosage/Unit Administered By Reason 2% XYLOCAINE 04/13/2017 4:58:47 PM 50 mL Maxine Mao 50 mL 2% XYLOCAINE given in lab by Maxine Mao in Left upper chest via Subcutaneous. Ordered by Maxine Soni. 2% XYLOCAINE 04/13/2017 5:59:59 PM 50 mL Mayco, Maxine 50 mL 2% XYLOCAINE given in lab by Maxine Mao via Subcutaneous. Ordered by Hanscy. Mayco 2% XYLOCAINE 04/13/2017 6:00:04 PM 50 mL Mayco, Maxine 50 mL 2% XYLOCAINE given in lab by Maxine Mao via Subcutaneous. Ordered by Maxine Mao. Medication (Drip) Medication Time Given Dosage/Unit Concentration/Unit Diluent (ml) Solution ANCEF 04/13/2017 4:42:50 PM 2 g 2 g ANCEF given in lab by Anesthesia, PHYSICS AND ASTRONOMY PROFESSOR via Peripheral IV. Ordered by Maxine Mao. VANCOMYCIN DRIP 04/13/2017 4:42:35 PM 1 g 1 g VANCOMYCIN DRIP given in lab by Anesthesia, PHYSICS AND ASTRONOMY PROFESSOR via Peripheral IV. Ordered by Maxine Mao. Final Case Assessment Cardiovascular HR Rhythm NIBP Chest Pain 59 sr 88/57 0 Edema Present Skin color Skin None Normal Warm Dry Circulatory - Right Pulses Dorsalis Pedis 1 Scale (0,1,2,3,4,d) Circulatory - Left Pulses Dorsalis Pedis 1 Scale (0,1,2,3,4,d) Circulatory - Lower Extremities Color Lower Right Color Lower Left Normal Normal Neurological State Oriented to time-place- Alert Moves all extremities person Respiration - General Respiration Rate SpO2 (%) (B/min) 16 95 Final Case Assessment Cardiovascular HR Rhythm NIBP Chest Pain 55 sb 102/70 0 Edema Present Skin color Skin None Normal Warm Dry Circulatory - Right Pulses Dorsalis Pedis 1 Scale (0,1,2,3,4,d) Circulatory - Left Pulses Dorsalis Pedis 1 Scale (0,1,2,3,4,d) Circulatory - Lower Extremities Color Lower Right Color Lower Left Normal Normal Neurological State Oriented to time-place- Lethargic Moves all extremities person Respiration - General Respiration Rate SpO2 (%) O2 (lpm) (B/min) 14 100 6 Chronological Log Time Study Chronological Log 16:33:00 Initial procedure has been completed. Beginning additional procedure. 16:33:43 Anesthesia remains at bedside. Assuming care of patient. 16:34:06 2% CHLORHEXIDINE GLUCONATE WASH AND NASAL SWIPE DONE PRIOR TO PROCEDURE. 16:34:13 Bovie ground pad applied to: right hip 16:42:35 1 g VANCOMYCIN DRIP given in lab by Anesthesia, PHYSICS AND ASTRONOMY PROFESSOR via Peripheral IV. Ordered by Curtis Mao. 16:42:50 2 g ANCEF given in lab by Anesthesia, PHYSICS AND ASTRONOMY PROFESSOR via Peripheral IV. Ordered by Maxine Mao. First Sponge And Instrument Count Done by Kristi Sidhu, RT(R) TECH2. 16:50:14 Hypo's: 3, Sponges: 20, Bovie/scratch: 2 Sutures: 10, Blades: 1, Instruments: 26, Syveck Patches: 0 Verified w MM 16:50:21 Upper Chest Prepped Times Two. Time Out. Correct patient, procedure, procedure equipment, site and side verified with physicia n present. Time 16:58:00 concurred by MD, individual staff and PHYSICS AND ASTRONOMY PROFESSOR. Time Out #2 - Consents verified, patient in correct position, all results are labled and displa yed, safety precautions 16:58:28 taken, antibiotics administered. Time out concurred by MD, individual staff and PHYSICS AND ASTRONOMY PROFESSOR in procedu re 16:58:44 Case Start 16:58:47 50 mL 2% XYLOCAINE given in lab by Maxine Mao in Left upper chest via Subcutaneous. Orde red by Maxine Mao. 17:00:39 Vascular access was obtained in the Subclav. Vein (Lft. 17:00:49 Vascular access was obtained in the Subclav. Vein (Lft. 17:00:52 Wire inserted 17:00:54 Wire inserted 17:02:00 Surgical Incision Made. 17:02:33 A pocket was created at the L Upper Chest. 17:04:43 A SAFE SHEATH, FR7, 13CM FR 7 was advanced into the Subclav. Vein (Lft using the Modified S eldinger technique. 17:05:33 A LEAD, CAPSUREFIX NOVUS, 58CM 58CM was inserted and positioned in the RV. 17:06:43 Lead placement verified under fluoroscopy 17:06:44 The RV lead impedance and threshold being tested. 17:07:26 The RV lead was sutured to the fascia. 17:08:06 A SAFE SHEATH, FR7, 13CM FR 7 was advanced into the Subclav. Vein (Lft using the Modified S eldinger technique. 17:08:21 A LEAD, CAPSUREFIX NOVUS 52CM 52CM was inserted and positioned in the RA. 17:08:30 Lead placement verified under fluoroscopy 17:09:41 The Atrial lead impedance and threshold is being tested. 17:09:48 The Atrial lead was sutured to the fascia. 17:13:36 Pocket flushed with antibiotic solution 17:13:38 A PACEMAKER, GALINDO SNOWAN OEA-DDDR was connected and placed in the pocket. Second Sponge And Instrument Count Done by Kristi Sidhu, RT(R) TECH2. 17:15:21 Hypo's: 3, Sponges: 20, Bovie/scratch: 2 Sutures: 10, Blades: 1, Instruments: 26, Syveck Patches: 0 17:17:50 Reference ECG taken 17:18:28 The pocket was closed. 17:18:29 Implant Procedure was performed. 17:18:35 A PPM Implant . (Dual) Final Sponge And Instrument Count Done by Kristi Sidhu RT(R) TECH2. 17:18:52 Hypo's: 3, Sponges: 20, Bovie/scratch: 2 Sutures: 10, Blades: 1, Instruments: 26, Syveck Patches: 0 Verified w MM 17:20:46 CICU called. Spoke to Sarah 17:21:12 Bedside Report will be given. 17:21:33 Steri-strips and a sterile dressing applied to site. 17:21:56 Sheaths to right groin remain secured, 0.9ns connected and will be removed by CCL staff upo n transfer to room. Assessment: Final Case, HR=59 BPM, Rhythm=sr, NIBP=88/57 mmhg, Chest Pain=0, Edema=None, Color= Normal, Skin = Warm, Dry Right Pulses: Demetrio Ped=1 Left Pulses: Demetrio Ped=1 17:22:49 Lower Right Extremities: Color=Normal Lower Left Extremities: Color=Normal Neurological: State=Alert, Ox3, QUINONES Respiration: Resp=16 B/min, SpO2=95 % 17:24:03 No case complications noted. 17:24:04 Cine recording checked. 17:28:14 Defibrillator and ground pads removed. Skin intact. 17:35:49 CXR done w pt on table. MD needs to reposition RA lead. 17:39:40 Anesthesia remains at bedside. Assuming care of patient. 17:40:45 Disposable Defibrillator Pads Placed On Patient. 17:40:54 Dressing removed. Left Upper Chest Prepped Times Two. 17:41:15 Bovie ground pad applied to: right thigh 17:46:03 Reference ECG taken First Sponge And Instrument Count Done by Kristi Sidhu, RT(R) TECH2. 17:46:07 Hypo's: 1, Sponges: 10, Bovie/scratch: 2 Sutures: 10, Blades: 1, Instruments: 23, Syveck Patches: 0 Verified w DB Time Out. Correct patient, procedure, procedure equipment, site and side verified with physicia n present. Time 17:59:00 concurred by MD, individual staff and PHYSICS AND ASTRONOMY PROFESSOR. Time Out #2 - Consents verified, patient in correct position, all results are labled and displa yed, safety precautions 17:59:22 taken, antibiotics administered. Time out concurred by MD, individual staff and PHYSICS AND ASTRONOMY PROFESSOR in procedu re 17:59:36 Case Start 17:59:59 50 mL 2% XYLOCAINE given in lab by Maxine Mao via Subcutaneous. Ordered by Maxine Mao . 18:00:04 50 mL 2% XYLOCAINE given in lab by Maxine Mao via Subcutaneous. Ordered by Maxine Mao . 18:01:13 Surgical Incision Made. 18:02:22 The RA Lead Was Revised. 18:02:31 Lead placement verified under fluoroscopy 18:04:43 The Atrial lead impedance and threshold is being tested. 18:10:15 The Atrial lead was sutured to the fascia. 18:10:31 Pocket flushed with antibiotic solution 18:11:01 The Atrial lead impedance and threshold is being tested. Second Sponge And Instrument Count Done by Kristi Sidhu, RT(R) TECH2. 18:12:27 Hypo's: 1, Sponges: 10, Bovie/scratch: 2 Sutures: 10, Blades: 1, Instruments: 23, Syveck Patches: 0 18:13:08 Implant Procedure was performed. 18:13:12 A PPM Implant . (Dual) 18:14:20 Implantable Device card placed in patient's chart. 18:14:25 CICU called. Spoke to Sarah 18:15:15 Bedside Report will be given. 18:17:00 The pocket was closed. Final Sponge And Instrument Count Done by Kristi Sidhu, RT(R) TECH2. 18:18:43 Hypo's: 1, Sponges: 10, Bovie/scratch: 2 Sutures: 10, Blades: 1, Instruments: 23, Syveck Patches: 0 Verified w DB 18:19:04 Steri-strips and a sterile dressing applied to site. 18:19:39 No case complications noted. 18:19:40 Cine recording checked. 18:19:50 Defibrillator and ground pads removed. Skin intact. 18:20:00 Case End Assessment: Final Case, HR=55 BPM, Rhythm=sb, YMXQ=673/70 mmhg, Chest Pain=0, Edema=None, Color =Normal, Skin = Warm, Dry Right Pulses: Demetrio Ped=1 Left Pulses: Demetrio Ped=1 18:20:45 Lower Right Extremities: Color=Normal Lower Left Extremities: Color=Normal Neurological: State=Lethargic, Ox3, QUINONES Respiration: Resp=14 B/min, NkK7=535 %, O2=6 lpm 18:29:30 A sling was placed on the affected arm. 18:35:54 Patient moved to stretcher End Study - Contrast Media Used In Study Contrast Total Opened (mL) Total Used (mL) Total Wasted (mL) Unspecified 0 0 0 End Study - Radiation Exposure Fluoro Time (minutes) 0.6 End Study - Patient Disposition Complications Transferred To Interventional Outcome No Telemetry Bed successful
--- NOTE | 2017-04-13 17:38 | PD.CARD ---
DUAL PPM IMPLANTATION PROCEDURE DATE: Apr 13, 2017 DUAL PPM IMPLANTATION PROCEDURE: Dual chamber permanent pacemaker implantation. INDICATIONS FOR PROCEDURE: Mr. Casas is a 51 -year-old male with an episode of syncope, new trifascicular block, infraHis disease, HV 90ms, on no negative chronotropic who undergo pacer insertion. The risks, the nature and the benefit of the procedure were clearly stated to him . The risks include pneumothorax, cardiac perforation, stroke and even . He understood and agreed to proceed. PROCEDURE As written informed consent was obtained, the patient was kept into the EP lab where he was prepped and draped in the usual sterile fashion. Conscious sedation was initiated and maintained throughout the procedure by the anesthesiologist. Once sedation was verified, the left infraclavicular area was with 2% Xylocaine. Using modified Seldinger technique, the left subclavian vein was cannulated on two occasions and two guidewires were advanced. Then, using a #11 blade scalpel, a 2 cm was made two fingerbreadths below the left clavicle. This incision was then taken down through the deep fascial layer using Bovie cautery and blunt dissection. Into the inferomedial direction, device pocket was dissected, then the wire was dissected into the pocket. A 2- 0 Vicryl suture was placed around the wire to prevent backbleeding. At this point, over the lateral wire, an 7-Lao dilator and introducer was advanced. As the dilator and wire were removed, an active fixation right ventricular pacing and sensing lead was advanced. After adequate pacing and sensing thresholds were obtained, the lead was secured in the pocket using 2-0 Ethibond suture. Then, over the remaining wire, an 7-Lao dilator and introducer was advanced. As the dilator and wire were removed, an active fixation right atrial pacing and sensing lead was advanced. After adequate pacing and sensing thresholds were obtained, the lead was secured into the pocket using 2-0 Ethibond suture. At that point, the pocket was copiously irrigated using antibiotic solution. This was connected to the generator and placed into the pocket. I did proceed with wound closure. The deep fascial layer was approximated using 2-0 Vicryl suture in a continuous fashion. The subcutaneous layer was approximated with 2-0 Vicryl suture in a continuous fashion. The subcuticular layer was approximated with 2-0 Vicryl suture in a continuous fashion. Dermabond adhesive was applied to the wound followed by sterile pressure dressing. There was no complication. The patient tolerated procedure. Blood loss minimal. IMPLANTED HARDWARE The permanent pacemaker is a Medtronic. Model # A2DR01 serial number [id number]. The right atrial pacing and sensing lead is a Medtronic model number 5076-58, serial number [id number]. The right ventricular pacing and sensing lead is a Medtronic model number 5076- 52, serial number [id number]. THRESHOLDS The right atrial pacing threshold in the bipolar mode was 2.0 @ 0.5 milliseconds, lead impedance 961 ohms and P-wave at 2.7 millivolts. The right ventricular pacing threshold in the bipolar mode was 0.9 milliseconds , lead impedance 0.5 ohms and R-wave at the 960 millivolts. SETTINGS The device was set in the AAI to DDD 50, upper limit 140 beats per minute. Mode switch are on. CONCLUSIONS: Successful permanent pacemaker implantation, COMMENT AND RECOMMENDATION The patient will be transferred to the telemetry unit. He will be observed. When stable, he can be discharged home. Maxine Mao MD Apr 13, 2017 17:38
[2017-04-13] MEDS ORDERED: SODIUM CHLOR 0.9% 250 ML INJ 250 ML IV PRN (18:30)
[2017-04-13] MEDS ORDERED: ONDANSETRON HCL 4 MG/2 ML VIAL IV PRN (18:30)
[2017-04-13] MEDS ORDERED: oxyCODONE/ACETAMINOPHEN 5 MG/325 MG TAB PO PRN (18:30)
[2017-04-13] MEDS ORDERED: BACITRACIN OINT 0.9 GM PKT TOP ONE (18:30)
[2017-04-13] MEDS ORDERED: LORazepam 2 MG/ML VIAL IV PRN (18:30)
[2017-04-13] MEDS ORDERED: METOCLOPRAMIDE HCL 10 MG/2 ML VIAL IV PRN (18:30)
[2017-04-13] MEDS ORDERED: LIDOCAINE HCL 1% 50 ML VIAL INFIL PRN (18:30)
[2017-04-13] MEDS ORDERED: ATROPINE SULFATE 1 MG/ML VIAL IV PRN (18:30)
--- NOTE | 2017-04-13 19:29 | RADRPT ---
EXAM DATE/TIME: 04/13/2017 18:49 [place] COMPARISON: CHEST SINGLE AP, April 10, 2017, 22:58. INDICATIONS : Evaluate for pneumothorax. MEDICAL HISTORY : Hypercholesterolemia. Hyperlipidemia. Pneumonia. Anxiety. SURGICAL HISTORY : Pacemaker. Right hand surgery. Vasectomy. ENCOUNTER: Initial ACUITY: 1 day PAIN SCORE: 0/10 LOCATION: Bilateral chest FINDINGS: Pacer leads overlie right atrium and right ventricle. Mild cardiomegaly. No focal consolidation or si gnificant effusion. No pneumothorax. CONCLUSION: 1. Mild basilar atelectasis. Pacer leads overlie right atrium and right ventricle. No effusion or pne umothorax. Seth Turner MD on April 13, 2017 at 19:26 Board Certified Radiologist. This report was verified electronically.
--- NOTE | 2017-04-13 20:53 | MA ---
cc: EDDI ANGELES M.D. DATE 04/13/17 ELECTROPHYSIOLOGY STUDY INDICATIONS Mr. Casas is a 51-year-old gentleman, episode of syncope, new trifascicular block, who will undergo electrophysiology study. The risks, the nature and the benefit of the procedure are clearly stated to him. The risks include pneumothorax, cardiac perforation, stroke and even . He understood and agreed to proceed. PROCEDURE After written informed consent was obtained, the patient was brought to the EP lab where he was prepped and draped in the usual sterile fashion. Conscious sedation was initiated and maintained throughout the procedure by anesthesiologist. Once sedation verified, the right inguinal area was anesthetized with 2% Xylocaine. Using modified Seldinger technique, the right femoral vein was cannulated on four occasions, four guidewires were advanced. Over the wires a 3, 5 and a 6-Nigerian Hemaquet were advanced. Then under fluoroscopic guidance through the 5 and 6-Nigerian Hemaquet, four 5-Nigerian Sharif curved quadripolar electrophysiology catheter was advanced and positioned on the His, upper right atrium, coronary sinus and right ventricular apex. Basic interval was measured. HV was prolonged, over 90 milliseconds. Then atrial pacing protocol was performed. Wenckebach of the node was around 550 milliseconds. No tachyarrhythmia was induced. Then ventricular pacing protocol was performed. There was no VA conduction. At that point there was no need for Isuprel infusion. All catheter, Hemaquet were removed. 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 No incident report. The patient tolerated the procedure. Blood loss minimal. ELECTROCARDIOGRAM 1. At baseline the patient was in sinus. Postprocedure electrocardiogram was unchanged. 2. Basic interval. Basic cycle length was 1018, AH at 96 and HV over 90 milliseconds. 3. Atrial pacing protocol Wenckebach of the node was around 550 milliseconds. No tachyarrhythmia was induced. 4. Ventricular pacing protocol, there was no VA conduction. No tachyarrhythmia was induced. CONCLUSION Severe infra-His disease. COMMENT/RECOMMENDATIONS The patient had syncopal episode, ___ infra-His disease, new trifascicular block. Will need a pacemaker. The risks, the nature and the benefit of the procedure are clearly stated to him and his ___. The procedure risks include pneumothorax, cardiac perforation, stroke and even . They understand and agreed to proceed. Procedure will be performed while the patient is on the table. going to be informed. Eddi Angeles MD HS/EO /5:38 PM /8:39 PM
[2017-04-14] VITALS (7 sets, daily range): BP systolic 111–127; BP diastolic 66–76; PULSE 9–75; RESP 20; TEMP 98.4–98.9; O2SAT 96–98
[2017-04-14] MEDS: ceFAZolin 2 GM PREMIX 50 ML IV SCH ×2 (01:09→09:41)
[2017-04-14] MEDS: oxyCODONE/ACETAMINOPHEN 5 MG/325 MG TAB PO PRN ×2 (01:09→08:51)
--- NOTE | 2017-04-14 07:59 | PD.CARD.PN ---
Subjective Subjective Remarks Feels ok. Objective Medications Current Medications Medications (Trade) Dose Ordered Sig/Bharat Route Start Time Stop Time Status Last Admin (NS Flush) 2 ml BID IV FLUSH 04/11/17 09:00 04/13/17 09:00 (NS Flush) 2 ml UNSCH PRN IVF 04/11/17 02:00 Sodium Chloride 1,000 ml @ 100 mls/hr Q10H IV 04/11/17 01:51 04/12/17 12:02 (PROzac) 10 mg DAILY PO 04/11/17 09:00 04/13/17 09:54 (Pravachol) 20 mg DAILY PO 04/11/17 09:00 04/13/17 09:00 (Ecotrin Ec) 81 mg DAILY PO 04/11/17 11:00 04/13/17 09:54 (Percocet 5-325 Mg) 1 tab Q4H PRN PO 04/13/17 18:30 04/14/17 01:09 (Percocet 5-325 Mg) 2 tab Q4H PRN PO 04/13/17 18:30 (Ativan Inj) 0.5 mg UNSCH PRN IV 04/13/17 18:30 04/14/17 18:29 (Atropine Inj) 0.5 mg UNSCH PRN IV 04/13/17 18:30 Sodium Chloride 250 ml @ 500 mls/hr ONCE PRN IV 04/13/17 18:30 04/14/17 18:29 (Reglan Inj) 10 mg Q4H PRN IV 04/13/17 18:30 (Zofran Inj) 4 mg Q4H PRN IV 04/13/17 18:30 (Xylocaine 1% Inj (50 ml)) 10 ml UNSCH PRN INFIL 04/13/17 18:30 04/14/17 18:29 Cefazolin Sodium/ Dextrose 50 ml @ 100 mls/hr Q8H IV 04/14/17 01:00 04/14/17 17:29 04/14/17 01:09 Vital Signs / I&O Vital Signs Date Time Temp Pulse Resp B/P (MAP) Pulse Ox O2 Delivery O2 Flow Rate FiO2 04/14/17 04:00 98.8 75 20 123/76 (92) 97 04/14/17 03:00 64 04/14/17 02:00 66 04/14/17 01:00 66 04/14/17 00:00 98.9 65 20 127/76 (93) 98 04/14/17 00:00 64 04/13/17 23:00 64 04/13/17 22:00 66 04/13/17 21:00 70 04/13/17 20:00 98.2 72 20 129/83 (98) 98 04/13/17 20:00 60 04/13/17 15:00 59 04/13/17 15:00 98.4 58 18 118/75 (89) 97 04/13/17 11:00 98.4 99 18 125/75 (92) 59 04/13/17 11:00 63 04/13/17 10:00 62 04/13/17 09:00 58 04/13/17 08:00 66 I/O 04/13/17 04/13/17 04/13/17 04/14/17 04/14/17 04/14/17 07:00 15:00 23:00 07:00 15:00 23:00 Intake Total 40 ml 370 ml Output Total 650 ml Balance 40 ml -280 ml Intake Oral 40 ml 320 ml IV Total 50 ml Output Urine Total 650 ml # Voids 3 Physical Exam GENERAL: Well-nourished, well-developed patient. SKIN: Warm and dry. Groin sites soft with no bruising or bleeding. HEAD: Normocephalic. EYES: No scleral icterus. No injection or drainage. NECK: Supple, trachea midline. No JVD or lymphadenopathy. CARDIOVASCULAR: Regular rate and rhythm without murmurs, gallops, or rubs. RESPIRATORY: Breath sounds equal bilaterally. No accessory muscle use. GASTROINTESTINAL: Abdomen soft, non-tender, nondistended. EXTREMITIES: No cyanosis, or edema. NEUROLOGICAL: Awake, alert, and oriented x 3. Non-focal. Imaging Last Impressions Chest X-Ray 04/13/17 0000 Signed Impressions: Service Date/Time: Thursday, April 13, 2017 18:49 - CONCLUSION: 1. Mild basilar atelectasis. Pacer leads overlie right atrium and right ventricle. No effusion or pneumothorax. Seth Turner MD Myocardial Perfusion Scan Nuc Med 04/12/17 0600 Signed Impressions: Service Date/Time: Wednesday, April 12, 2017 08:32 - CONCLUSION: Small size mild severity anterior wall perfusion abnormality without redistribution. RISK CATEGORY: Low (<1%% Annual Mortality Rate) Jet Kirby MD Carotid Artery Ultrasound 04/11/17 0000 Signed Impressions: Service Date/Time: Tuesday, April 11, 2017 12:38 - CONCLUSION: Negative for hemodynamically significant stenosis.. Westley Zapata MD FACR Head CT 04/10/17 2238 Signed Impressions: Service Date/Time: Monday, April 10, 2017 22:46 - CONCLUSION: No acute intracranial abnormality. Jet Moran MD Assessment and Plan Problem List: (1) Syncope ICD Codes: R55 - Syncope and collapse Status: Acute Plan: Infra His disease. Stable s/p PPM. (2) S/P cardiac pacemaker procedure ICD Codes: Z95.0 - Presence of cardiac pacemaker Plan: Stable s/p PPM implantation. Can be discharged home at the discretion of the managing team. F/U with Dr. Mao in 2 weeks. Assessment and Plan D/W RN, Pt., Dr. Mao. Problem Qualifiers (1) Syncope: Qualified Codes: R55 - Syncope and collapse Paula Davila Apr 14, 2017 07:59
[2017-04-14] MEDS: PRAVASTATIN SOD 20 MG TAB PO SCH (09:00)
[2017-04-14] MEDS: FLUoxetine HCL 10 MG CAP PO SCH (09:40)
[2017-04-14] MEDS: ASPIRIN EC 81 MG TABEC PO SCH (09:40)
[2017-04-14] MEDS: SODIUM CHLORIDE 0.9% FLUSH 10 ML FLUSH IV FLUSH SCH (09:41)
[2017-04-14] MEDS ORDERED: OXYC1TAB63 PO (09:48)
[2017-04-14] MEDS ORDERED: ASPI-99 PO (09:48)
[2017-04-14] MEDS ORDERED: CEPH500C PO (09:48)
--- NOTE | 2017-04-14 09:56 | HHI.PR ---
Subjective Remarks Follow-up syncope/heart block 04/13/17-patient seen and examined, denies any syncopal episode. Denies any chest pain or shortness of breath. Stress test without any ischemia. Case discussed with financial aid officer Dr. Mao 04/14/17-patient seen and examined, he is status post PPM placement 04/13/17. Denies any chest pain or shortness of breath only soreness at the incision site. Currently afebrile. Ready For discharge home. Objective Vitals Vital Signs Date Time Temp Pulse Resp B/P (MAP) Pulse Ox O2 Delivery O2 Flow Rate FiO2 04/14/17 04:00 98.8 75 20 123/76 (92) 97 04/14/17 03:00 64 04/14/17 02:00 66 04/14/17 01:00 66 04/14/17 00:00 98.9 65 20 127/76 (93) 98 04/14/17 00:00 64 04/13/17 23:00 64 04/13/17 22:00 66 04/13/17 21:00 70 04/13/17 20:00 98.2 72 20 129/83 (98) 98 04/13/17 20:00 60 04/13/17 15:00 59 04/13/17 15:00 98.4 58 18 118/75 (89) 97 04/13/17 11:00 98.4 99 18 125/75 (92) 59 04/13/17 11:00 63 04/13/17 10:00 62 I/O 04/13/17 04/13/17 04/13/17 04/14/17 04/14/17 04/14/17 07:00 15:00 23:00 07:00 15:00 23:00 Intake Total 40 ml 370 ml Output Total 650 ml Balance 40 ml -280 ml Intake Oral 40 ml 320 ml IV Total 50 ml Output Urine Total 650 ml # Voids 3 Result Diagram: 04/12/17 0604/12/17 06 Imaging Last Impressions Chest X-Ray 04/13/17 0000 Signed Impressions: Service Date/Time: Thursday, April 13, 2017 18:49 - CONCLUSION: 1. Mild basilar atelectasis. Pacer leads overlie right atrium and right ventricle. No effusion or pneumothorax. Seth Turner MD Myocardial Perfusion Scan Nuc Med 9/5/17 0600 Signed Impressions: Service Date/Time: Wednesday, April 12, 2017 08:32 - CONCLUSION: Small size mild severity anterior wall perfusion abnormality without redistribution. RISK CATEGORY: Low (<1%% Annual Mortality Rate) Jet Kirby MD Carotid Artery Ultrasound 04/11/17 0000 Signed Impressions: Service Date/Time: Tuesday, April 11, 2017 12:38 - CONCLUSION: Negative for hemodynamically significant stenosis.. Westley Zapata MD FACR Head CT 04/10/178 Signed Impressions: Service Date/Time: Monday, April 10, 2017 22:46 - CONCLUSION: No acute intracranial abnormality. Jet Moran MD Objective Remarks GENERAL: NAD SKIN: Warm and dry. HEAD: Normocephalic. EYES: No scleral icterus. No injection or drainage. NECK: Supple, trachea midline. No JVD or lymphadenopathy. CARDIOVASCULAR: Regular rate and rhythm without murmurs, gallops, or rubs. s/p PPM implantation 04/13/17; inc c/d/i RESPIRATORY: Breath sounds equal bilaterally. No accessory muscle use. GASTROINTESTINAL: Abdomen soft, non-tender, nondistended. MUSCULOSKELETAL: No cyanosis, or edema. BACK: Nontender without obvious deformity. No CVA tenderness. Procedures s/p PPM implantation 04/13/17 A/P Problem List: (1) Syncope ICD Code: R55 - Syncope and collapse Status: Resolved (2) HLD (hyperlipidemia) ICD Code: E78.5 - Hyperlipidemia, unspecified Status: Chronic (3) Heart block ICD Code: I45.9 - Conduction disorder, unspecified Assessment and Plan 51-year-old man with Syncope: unclear etiology, suspect cardiogenic vs vasovagal in combination with alcohol use. -s/p PPM implantation 04/13/17 -2 D echocardiogram with EF of 60-65% -U/S carotids unremarkable -Lexiscan stress test without any ischemia -HgbA1C 5.3 Trifascicular Block -ACS ruled out per protocol with serial cardiac enzyme and EKGs -Nuclear stress test showed small size mild severity anterior wall perfusion abnormality without redistribution -Cardiac Electrophysiology evaluation ; s/p PPM implantation 04/13/17 HLD: chronic, continue home medication lovastatin Depression: Continue home medication Prozac DVT prophylaxis: Heparin Problem Qualifiers (1) Syncope: Qualified Codes: R55 - Syncope and collapse Janusz Velarde MD Apr 14, 2017 09:56
--- NOTE | 2017-04-14 09:58 | HHI.DS ---
Discharge Summary Admission Date Apr 11, 2017 at 01:51 Discharge Date: Apr 14, 2017 Admitting Diagnosis Syncope (1) Syncope ICD Code: R55 - Syncope and collapse Status: Resolved (2) HLD (hyperlipidemia) ICD Code: E78.5 - Hyperlipidemia, unspecified Status: Chronic (3) Heart block ICD Code: I45.9 - Conduction disorder, unspecified Procedures s/p PPM implantation 04/13/17 Brief History - From Admission Written by RASHAAD Crawley acting as scribe for [Rosa Isela] on 04/11/17 at 03: 36. 51 y/o male with a history of HLD and depression presented to the ED after having two episodes of syncope at home. Patient states he was just sitting in a chair at dinner on the patio. Patient does not remember the episodes but remembers when he came to and his was trying to wake him up. He states his told him the first episode he was out for 45 seconds and the second episode was shorter. He did have urinary incontinence but no tongue biting. Unclear if he was postictal at any time. He denies any chest pain, sob, dizziness, fever or chills. He states he only had a few beers tonight while cooking BBQ. No history of seizures. CBC/BMP: 04/12/17 0600 04/12/17 0600 Significant Findings Laboratory Tests Test 04/11/17 10:36 04/12/17 06:00 Random Glucose 147 MG/DL (74-106) Estimat Glomerular Filtration Rate 72 ML/MIN (>89) 84 ML/MIN (>89) Troponin I LESS THAN 0.02 NG/ML Red Blood Count 4.27 MIL/MM3 (4.50-5.90) Hematocrit 38.9 % (39.0-51.0) Monocytes (%) (Auto) 10.0 % (0.0-8.0) Calcium Level 8.3 MG/DL (8.5-10.1) Chloride Level 108 MEQ/L (98-107) Triglycerides Level 211 MG/DL (42-150) Imaging Last Impressions Chest X-Ray 04/13/17 0000 Signed Impressions: Service Date/Time: Thursday, April 13, 2017 18:49 - CONCLUSION: 1. Mild basilar atelectasis. Pacer leads overlie right atrium and right ventricle. No effusion or pneumothorax. Seth Turner MD Myocardial Perfusion Scan [facility] 04/12/17 0600 Signed Impressions: Service Date/Time: Wednesday, April 12, 2017 08:32 - CONCLUSION: Small size mild severity anterior wall perfusion abnormality without redistribution. RISK CATEGORY: Low (<1%% Annual Mortality Rate) Jet Kirby MD Carotid Artery Ultrasound 04/11/17 0000 Signed Impressions: Service Date/Time: Tuesday, April 11, 2017 12:38 - CONCLUSION: Negative for hemodynamically significant stenosis.. Westley Zapata MD FACR Head CT 04/10/178 Signed Impressions: Service Date/Time: Monday, April 10, 2017 22:46 - CONCLUSION: No acute intracranial abnormality. Jet Moran MD PE at Discharge GENERAL: NAD SKIN: Warm and dry. HEAD: Normocephalic. EYES: No scleral icterus. No injection or drainage. NECK: Supple, trachea midline. No JVD or lymphadenopathy. CARDIOVASCULAR: Regular rate and rhythm without murmurs, gallops, or rubs. s/p PPM implantation 04/13/17; inc c/d/i RESPIRATORY: Breath sounds equal bilaterally. No accessory muscle use. GASTROINTESTINAL: Abdomen soft, non-tender, nondistended. MUSCULOSKELETAL: No cyanosis, or edema. BACK: Nontender without obvious deformity. No CVA tenderness. Hospital Course Patient admitted secondary to syncopal and was found to have trifascicular block for which cardiology was initially consulted and he underwent nuclear stress test and had ACS ruled out per protocol was normal serial cardiac enzyme and EKGs. Director College was consulted, and patient is status post PPM implantation on 04/13/17. He was continued on a treatment for other chronic medical condition including hyperlipidemia and anxiety. DVT and GI prophylaxis were provided. Prior to discharge, patient's condition improved and vitals remained stable. Pt Condition on Discharge: Stable Discharge Disposition: Discharge Home Discharge Time: <= 30 minutes Discharge Instructions DIET: Follow Instructions for: Heart Healthy Diet Activities you can perform: Regular-No Restrictions Follow up Referrals: Cardiology PCP Follow-up - 1 Week New Medications: Aspirin DR (Adult Aspirin EC Low Strength) 81 Mg Tabec 81 MG PO DAILY for Prevent Blood Clot, #30 TAB Cephalexin (Cephalexin) 500 Mg Cap 500 MG PO Q8HR for Infection, #21 CAP Oxycodone-Acetaminophen (Oxycodone-Acetaminophen) 5-325 mg Tab 1 TAB PO Q4H PRN for PAIN SCALE 1 TO 4, #30 TAB Continued Medications: Fluoxetine (Prozac) 10 Mg Cap 10 MG PO DAILY, #30 CAP 0 Refills Ibuprofen (Ibuprofen) 600 Mg Tab 600 MG PO DAILY PRN for PAIN, TAB 0 Refills Lovastatin (Lovastatin) 20 Mg Tab 20 MG PO DAILY for Cholesterol Management, #30 TAB 0 Refills Multiple Vitamin (Multi Vitamin Daily) 1 Tab Tab PO DAILY Janusz Velarde MD Apr 14, 2017 09:58
--- NOTE | 2017-04-14 12:45 | EKG ---
Date Performed: 04/14/2017 Time Performed: 05:50:28 PTAGE: 51 years EKG: Sinus rhythm with 1st degree A-V block Left axis deviation RBBB with left anterior fascicular block Abnormal ECG PREVIOUS TRACING : 04/13/2017 19.19 DOCTOR: Byron Paz Interpretating Date/Time 04/14/2017 12:42:50
--- NOTE | 2017-04-14 12:51 | EKG ---
Date Performed: 04/13/2017 Time Performed: 19:19:28 PTAGE: 51 years EKG: Sinus bradycardia Left axis deviation RBBB with left anterior fascicular block Possible lat eral infarct - age undetermined Inferior T wave changes are nonspecific Abnormal ECG PREVIOUS TRACING : 04/11/2017 16.31 DOCTOR: Byron Paz Interpretating Date/Time 04/14/2017 12:47:01
--- NOTE | 2017-04-14 13:06 | HM ---
Date Performed: 04/12/2017 Time Performed: 11:20:00 HOOKUP DATE: 04/12/17 11:20:00 AM Tue ANALYSIS START TIME: 04/12/2017 11:25:00 AM ANALYSIS END TIME: 04/13/2017 11:28:01 AM PATIENT AGE: 51 PATIENT HEIGHT PATIENT WEIGHT DRUG LIST PATIENT DIAGNOSIS: syncope TEST NARRATIVE: The patient's average heart rate was 63 BPM. No episodes of tachycardia wer e noted. Heart rates less than 50 BPM were noted < 1% of the time. No pauses exceeding 2.0 secon ds were noted. 46 ventricular ectopics, which represented < 1% of the total beat count, were note d. The highest ventricular ectopic frequency occurred from 03:00 AM to 04:00 AM Wed. During this ti me 17 VE(s) occurred. Ventricular ectopics were observed as 17 isolated beat(s), as 4 couplet(s) and as 3 run(s). 6 supraventricular ectopics, which represented < 1% of the total beat count, were n oted. The highest supraventricular ectopic frequency occurred from 01:00 PM to 02:00 PM e. During this time 3 SVE(s) occurred. No episodes of ST depression (defined as -1.0 mm or more) were note d in channel 1. No episodes of ST depression (defined as -1.0 mm or more) were noted in channel 2. No episodes of ST depression (defined as -1.0 mm or more) were noted in channel 3. POOR QUALITY ROCEAL NG, NO DIARY RETURNED, PT TECH REMOVED MONITOR TO SHAVE AND REAPPLIED INCORRECTLY TEST INTERPRETATION: Sinus rhythm with episodes of Non Sustained VT Signed by : Byron Paz
[2017-04-14] MEDS ORDERED: CEPHALEXIN MONOHYDRATE 500 MG CAP PO SCH (22:00)
== END 2017-04-14 12:39 | disposition home or self-care (01) ==
LOC: NEPC 21:18 → NEDH 04-11 01:51 → NEPFCDU 04-11 05:29 → HCIS 04-12 14:35
PROVIDERS: ADMIT Hospitalist; ATTEND Hospitalist
DX: I44.1 Atrioventricular block, second degree (principal); I45.3 Trifascicular block; E78.5 Hyperlipidemia, unspecified; I25.10 Atherosclerotic heart disease of native coronary artery without angina pectoris; R79.89 Other specified abnormal findings of blood chemistry; R94.31 Abnormal electrocardiogram [ECG] [EKG]; R79.1 Abnormal coagulation profile; R09.89 Other specified symptoms and signs involving the circulatory and respiratory systems; F32.9 Major depressive disorder, single episode, unspecified; Z23 Encounter for immunization
CPT/HCPCS: 00530; 33208; 70450; 71010; 76937; 78452; 80048; 80053; 80061; 80307; 81001; 82550; 82948; 83036; 83735; 84484; 85025; 85379; 85610; 85730; 90686; 93005; 93017; 93225; 93226; 93306; 93454; 93620; 93880; 95819; 96360; 96361; 96372; 99285; A9502; C1730; C1769; C1785; C1893; C1898; G0378; J0690; J1644; J2250; J2785; J3010; J3370; J7030; J7050; 90471; G0008; J2405; Q2038; Q9967